=== PATIENT | male | born 1955 | race Caucasian/White ===

== ENCOUNTER 2017-03-19 17:09 | Inpatient (IN) | payer OTHER ==
[2017-03-19] MEDS ORDERED: ONDANSETRON 4 MG/2 ML VIAL IVP PRN (17:33)
[2017-03-19] MEDS ORDERED: PROMETHAZINE HCL 25 MG/ML INJ IVP PRN (17:33)
[2017-03-19] MEDS ORDERED: ZOLPIDEM TARTRATE 5 MG TAB PO PRN (17:33)
[2017-03-19] MEDS ORDERED: HYDROmorphONE/DILAUDID 6 MG/30 ML PCA IV PRN (17:34)
[2017-03-19] MEDS ORDERED: NALOXONE HCL 0.4 MG/ML INJ IVP PRN (17:34)
[2017-03-19] MEDS ORDERED: TAMSULOSIN HCL 0.4 MG CAP PO SCH (17:45)
[2017-03-19 18:43] LABS: HEMATOCRIT 35.3 % (40.0-51.0); HEMOGLOBIN 11.9 g/dL (13.7-17.5); MEAN CELL HEMOGLOBIN 30.9 pg (27.9-34.1); MEAN CELL HEMOGLOBIN CONCENTR. 33.7 g/dL (32.4-36.7); MEAN CELL VOLUME 91.7 fL (81.5-99.8); RED BLOOD CELL COUNT 3.85 10^6/uL (4.40-6.38); RED CELL DISTRIBUTION WIDTH 12.7 % (11.5-15.2)
[2017-03-19 18:56] LABS: ANION GAP 12 mEq/L (8-16); CALCIUM 9.6 mg/dL (8.5-10.4); CARBON DIOXIDE 23 mEq/l (22-31); CHLORIDE 105 mEq/L (97-110); CREATININE 1.6 mg/dL (0.7-1.3); GLOMERULAR FILTRATION RATE 44; GLUCOSE 105 mg/dL (70-100); POTASSIUM 4.3 mEq/L (3.5-5.2); SODIUM 140 mEq/L (134-144)
[2017-03-19] MEDS ORDERED: 1/2 NS 1,000 ML IV SCH (19:30)
[2017-03-19] MEDS ORDERED: D50W 25 GM/50 ML SYR IVP PRN (19:57)
[2017-03-19] MEDS ORDERED: INSULIN PUMP, PATIENT OWN 1 EA MISC SCH (20:00)
[2017-03-19] MEDS ORDERED: NON-FORMULARY NEW DRUG (Insulin Pump, Patient Own 1 EA) MISC SCH (20:00)
[2017-03-19] MEDS: FLUoxetine 10 MG CAP PO SCH (20:02)
--- NOTE | 2017-03-19 20:51 | GCON ---
[f rep st] CONSULTATION DATE OF CONSULTATION: 03/19/2017 REFERRING PHYSICIAN: Phillip Wood MD REASON FOR CONSULTATION: Medical management. HISTORY OF PRESENT ILLNESS: This is a 61-year-old male with a history of type 1 diabetes, coronary artery disease and previous strokes among other chronic medical problems. He does have a history of nephrolithiasis. He has been having pain for about a week and went to the [facility] Emergency Department. At that time he was diagnosed with a large right ureteral stone. He is being admitted for definitive procedure tomorrow by Dr. Wood. He says he has had some low-grade fevers, but no chills. He had some pain that started in his groin and now remains in his flank although he is comf ortable at the time. He has had some nausea and vomiting. No chest pain or shortness of breath. REVIEW OF SYSTEMS: A 10-point review of systems was obtained, and other than stated above is negati ve. PAST MEDICAL HISTORY: 1. Previous nephrolithiasis. 2. History of coronary artery disease with multiple stents, with the last stent done in November. 3. Type 1 diabetes on insulin pump. 4. History of CVA x3. 5. History of patent foramen ovale. 6. Obstructive sleep apnea on CPAP. 7. History of myasthenia gravis. 8. Hyperthyroidism. 9. Hypertension. 10. Hyperlipidemia. MEDICATIONS: Reviewed. SOCIAL HISTORY: No smoking or alcohol. FAMILY HISTORY: Dad with type 2 diabetes. No coronary artery disease. PAST SURGICAL HISTORY: 1. Hiatal hernia x 2. 2. Right shoulder surgery. 3. Carpal tunnel surgery. 4. Right inguinal surgery. 5. Kidney stones. PHYSICAL EXAM: VITAL SIGNS: Afebrile, blood pressure is 160/66, heart rate 86, oxygen saturation 9 1% on room air. GENERAL: The patient is well developed, in no apparent distress. HEENT: Nonicter ic sclerae. Extraocular movements intact. Moist mucous membranes. NECK: Supple. No thyromegaly. LUNGS: Good effort. Clear to auscultation bilaterally. CARDIOVASCULAR: Regular rate and rhythm . No murmurs, gallops. ABDOMEN: Positive bowel sounds. Soft, nontender, nondistended. No hepato splenomegaly. EXTREMITIES: No clubbing, cyanosis, or edema. SKIN: Without rash. Warm, intact. NEUROLOGIC: Alert and oriented x3. Moving all 4 extremities equally. PSYCHIATRIC: Normal affect. DIAGNOSTIC DATA: Labs: White count 8, hemoglobin 12. Chemistry does show creatinine 1.6 with a bas kristi of 0.9. ASSESSMENT: This is a 61-year-old male presenting with obstructing right kidney stone. 1. Right kidney stone. The patient will be undergoing a procedure tomorrow. I assume that his wor kup for infection was negative at [facility] a few days ago. We will check a urinalysis while kirti fry is here and make sure there is no infection. 2. History of type 1 diabetes with some element of insulin resistance. The patient is comfortable managing his insulin pump. We will continue to let him do that while in the hospital. I have held h is metformin because his creatinine is a little bit elevated. 3. History of coronary artery disease. This is stable. Since his last stent was over a year ago, we will hold his Plavix and hold aspirin for a day or 2 and around the procedure. 4. Acute renal failure. Probably due to obstructing stone. We will continue to monitor after his stone is removed. 5. History of obstructive sleep apnea. We will continue CPAP at night. 6. Hypertension. We will continue metoprolol. Will hold losartan due to his renal failure. 7. Deep venous thrombosis prophylaxis will start after surgery. Thank you for this consultation. We will follow along with you. /[id number]/MODL
[2017-03-19] MEDS ORDERED: FLUoxetine 20 MG CAP PO SCH (21:00)
[2017-03-19 22:45] LABS: HEMOGLOBIN A1C 6.8 % (4.0-6.0)
[2017-03-20 04:41] LABS: COLOR PALE YELLOW; LEUKOCYTE ESTERASE,URINE TRACE (NEGATIVE); NITRITE,URINE NEGATIVE (NEGATIVE)
[2017-03-20 04:46] LABS: BACTERIA TRACE /hpf (NONE SEEN); MUCUS TRACE /lpf (NONE-1+); RBC,URINE 25-50 /hpf (0-3)
[2017-03-20 05:21] LABS: % IMMATURE GRANULYOCYTES 0.4 % (0.0-1.1); ABSOLUTE IMMATURE GRANULOCYTES 0.03 10^3/uL (0.00-0.10); ADD DIFF? NO; ADD MORPH? NO; ADD SCAN? NO; ATYPICAL LYMPHOCYTE FLAG 10 (0-99); FRAGMENT RBC FLAG 0 (0-99); HEMATOCRIT 33.8 % (40.0-51.0); HEMOGLOBIN 11.1 g/dL (13.7-17.5); LEFT SHIFT FLG 0 (0-99); LIPEMIA HEMOLYSIS FLAG 80 (0-99); MEAN CELL HEMOGLOBIN 30.6 pg (27.9-34.1); MEAN CELL HEMOGLOBIN CONCENTR. 32.8 g/dL (32.4-36.7); MEAN CELL VOLUME 93.1 fL (81.5-99.8); MEAN PLATELET VOLUME 9.9 fL (8.7-11.7); PLATELET CLUMPS FLAG 0 (0-99); PLATELET COUNT 161 10^3/uL (150-400); RED BLOOD CELL COUNT 3.63 10^6/uL (4.40-6.38); RED CELL DISTRIBUTION WIDTH 12.9 % (11.5-15.2)
[2017-03-20 05:34] LABS: ANION GAP 11 mEq/L (8-16); CARBON DIOXIDE 25 mEq/l (22-31); CHLORIDE 104 mEq/L (97-110); CREATININE 1.7 mg/dL (0.7-1.3); GLOMERULAR FILTRATION RATE 41; GLUCOSE 79 mg/dL (70-100); POTASSIUM 4.4 mEq/L (3.5-5.2); SODIUM 140 mEq/L (134-144)
[2017-03-20] MEDS ORDERED: D10W 250 ML PRN HYPOGLYCEMIA IV (07:00)
[2017-03-20] MEDS ORDERED: levOFLOXACIN 500 MG/DEXTROSE 100 ML IV ONE (08:00)
[2017-03-20] MEDS ORDERED: IOPAMIDOL (ISOVUE-M 300) 15 ML VIAL ONE ×2 (08:32→09:51)
[2017-03-20] MEDS ORDERED: LIDOCAINE 2% JELLY 20 ML (UROJECT) ONE (08:32)
[2017-03-20] MEDS ORDERED: LR 1,000 ML IV ONE (08:39)
[2017-03-20] MEDS ORDERED: MIDAZOLAM 2 MG/2 ML VIAL IVP ONE (08:46)
--- NOTE | 2017-03-20 08:48 | PDANEPAE ---
ANE History of Present Illness 61-yo M for Ureteroscopy ANE Past Medical History - Cardiovascular History Hx Hypertension: Yes Hx Arrhythmias: No Hx Chest Pain: No Hx Coronary Artery / Peripheral Vascular Disease: Yes Hx CHF / Valvular Disease: No Hx Palpitations: No Cardiovascular History Comment: HTN. CAD. IA WITH STENT PLACEMENT X1 - Pulmonary History Hx COPD: No Hx Asthma/Reactive Airway Disease: No Hx Recent Upper Respiratory Infection: No Hx Oxygen in Use at Home: No Hx Sleep Apnea: Yes Sleep Apnea Screening Result - Last Documented: Positive Pulmonary History Comment: YOANDY POSITIVE - Neurologic History Hx Cerebrovascular Accident: Yes Hx Seizures: Yes Hx Dementia: No Neurologic History Comment: CVA IN 2005 X3. SEIZURES FOR 6 MONTHS FOLLOWING CVA - Endocrine History Hx Diabetes: Yes Endocrine History Comment: DM - Renal History Hx Renal Disorders: Yes Renal History Comment: RIGHT URETEROSCOPY WITH RHONDA 12/06/14 - Liver History Hx Hepatic Disorders: No - Neurological & Psychiatric Hx Hx Neurological and Psychiatric Disorders: No - Cancer History Hx Cancer: No - Congenital Disorder History Hx Congenital Disorders: No - GI History Hx Gastrointestinal Disorders: No - Other Health History Other Health History: NONE - Chronic Pain History Chronic Pain: No - Surgical History Prior Surgeries: RIGHT URETEROSCOPY WITH DR ELLIS 12/06/14 CARYL Review of Systems - Exercise capacity METS (RN): 3 METS ANE Patient History - Allergies Allergies/Adverse Reactions: caffeine Allergy (Verified 12/05/14 19:19) Sulfa (Sulfonamide Antibiotics) Allergy (Verified 12/05/14 11:52) - Home Medications Home Medications: Multivitamins [Multivitamin (*)] 1 each PO DAILY 12/05/14 [Last Taken 03/19/17] Aspirin [Aspirin 325 mg (*)] 325 mg PO DAILY 07/03/15 [Last Taken 03/18/17] Metoprolol Succinate Xr [Toprol Xl 25 mg (*)] 25 mg PO DAILY 07/03/15 [Last Taken 03/19/17] Simvastatin [Zocor] 20 mg PO DAILY 07/03/15 [Last Taken 03/19/17] Insulin Pump, Patient Own 1 ea MISC AD 05/15/16 [Last Taken 03/19/17] metFORMIN HCL [Glucophage 500 mg (*)] 1,000 mg PO BIDMEAL 05/15/16 [Last Taken 03/19/17 1 TAB] ARIPiprazole [Abilify 5 mg (*)] 5 mg PO DAILY 03/19/17 [Last Taken 03/19/17] Cholecalciferol Vit D3 [Vitamin D3 (*)] 2,000 units PO DAILY 03/19/17 [Last Taken 03/19/17] FLUoxetine [Prozac 10 MG (*)] 10 mg PO HS MDD 30MG 03/19/17 [Last Taken 03/18/17 ] FLUoxetine [Prozac 20 MG (*)] 20 mg PO HS MDD 30MG 03/19/17 [Last Taken 03/19/17 ] Losartan Potassium 100 mg PO DAILY 03/19/17 [Last Taken 03/19/17] [place]-3 Fatty Acids [Fish Oil 1000 mg (*)] 1,000 mg PO TID 03/19/17 [Last Taken Unknown] Tamsulosin HCl [Flomax 0.4 MG (*)] 0.4 mg PO DAILY 03/19/17 [Last Taken 03/19/17 ] - NPO status NPO Since - Liquids (Date): 03/20/17 NPO Since - Liquids (Time): 00:00 NPO Since - Solids (Date): 03/20/17 NPO Since - Solids (Time): 00:00 - Smoking Hx Smoking Status: Never smoked - Family Anes Hx Family Hx Anesthesia Complications: NONE ANE Labs/Vital Signs - Labs Result Diagrams: 03/20/17 04:30 03/20/17 04:30 - Vital Signs Blood Pressure: 137/65 Heart Rate: 84 Respiratory Rate: 16 O2 Sat (%): 93 Height: 172.72 cm Weight: 116.2 kg ANE Physical Exam - Airway Neck exam: FROM Mallampati Score: Class 2 Mouth exam: normal dental/mouth exam - Pulmonary Pulmonary: clear to auscultation - Cardiovascular Cardiovascular: regular rate and rhythym - ASA Status ASA Status: III ANE Anesthesia Plan Anesthesia Plan: GA w LMA
[2017-03-20] MEDS ORDERED: MIDAZOLAM 2 MG/2 ML VIAL ONE (08:54)
[2017-03-20] MEDS ORDERED: fentaNYL 100 MCG/2 ML INJ ONE ×3 (08:55→11:11)
[2017-03-20] MEDS ORDERED: PROPOFOL 200 MG/20 ML VIAL ONE (08:55)
[2017-03-20] MEDS ORDERED: HYDROmorphONE/DILAUDID 1 MG/ML SYR IVP PRN ×2 (09:04→11:45)
[2017-03-20] MEDS ORDERED: ONDANSETRON 4 MG/2 ML VIAL IVP PRN (09:04)
[2017-03-20] MEDS ORDERED: ACETAMINOPHEN 500 MG TAB PO PRN (09:04)
[2017-03-20] MEDS ORDERED: NALOXONE HCL 0.4 MG/ML INJ IVP PRN (09:04)
[2017-03-20] MEDS ORDERED: METOCLOPRAMIDE 10 MG/2 ML VIAL ONE (09:23)
[2017-03-20] MEDS ORDERED: ONDANSETRON 4 MG/2 ML VIAL ONE (09:24)
--- NOTE | 2017-03-20 10:50 | POSTANESTH ---
Post Anesthetic Evaluation Cardiovascular Status: Normal, Stable Respiratory Status: Normal, Stable Level of Consciousness/Mental Status: Can Participate in Eval, Alert and Oriented Pain Control: Adequate, Prn Tx Ordered Nausea/Vomiting Control: Adequate, Prn Tx Ordered
[2017-03-20] MEDS: fentaNYL 100 MCG/2 ML INJ IVP PRN ×2 (11:18→11:40)
--- NOTE | 2017-03-20 11:41 | POSTOPPROG ---
Post Op Note Date of Operation: 03/20/17 (H&P # [id number]) Surgeon: Phillip Wood (Op # [id number]) Anesthesia: LMA Pre-op Diagnosis: Right ureteral calculus Post-op Diagnosis: Multiple right ureteral calculi Procedure: Ureteroscopy w/ laser lithotripsy, stent placement Findings: See op note Inf/Abcess present in the surg proc area at time of surgery?: No EBL: Minimal Complications: Small distal ureteral perforation Drains: Other (4.7 Fr. multilength right ureteral stent)
[2017-03-20] MEDS ORDERED: HYDROCODONE/APAP 5/325 TAB PO PRN (11:45)
[2017-03-20] MEDS: PHENAZOPYRIDINE HCL 200 MG TAB PO SCH ×3 (13:12→20:58)
[2017-03-20] MEDS: TAMSULOSIN HCL 0.4 MG CAP PO SCH (13:13)
[2017-03-20] MEDS: ARIPiprazole 5 MG TAB PO SCH (13:14)
[2017-03-20] MEDS: ATORVASTATIN CALCIUM 10 MG TAB PO SCH (13:14)
[2017-03-20] MEDS: METOPROLOL SUCCINATE XR 25 MG TAB PO SCH (13:15)
--- NOTE | 2017-03-20 13:32 | GHP ---
[f rep st] HISTORY AND PHYSICAL DATE OF ADMISSION: 03/19/2017 CHIEF COMPLAINT: Symptomatic right ureteral calculus. HISTORY OF PRESENT ILLNESS: This is a 61-year-old gentleman, well known to my practice with a longs tanding history of recurrent nephroureterolithiasis. He started experiencing significant right-side d flank and abdominal pain earlier this week, for which he has been to the emergency room at [facility] twice. CT scan at that time revealed a large right midureteral calculus with moder ate proximal hydronephrosis and hydroureter. Multiple other renal calculi were also seen. The martina ent presented to my office on 03/19 and was noted to have intermittently severe symptoms. Because o f the size of the calculus and concern that he could be developing an infection, the patient was adm itted to the hospital for further management including surgical treatment of the ureteral calculi. The patient did have a low-grade temperature of 100 degrees the day prior to presentation to my offi ce. He denies any dysuria, gross hematuria, or changes in his voiding pattern. PAST MEDICAL HISTORY: Notable for recurrent nephroureterolithiasis, myasthenia gravis, high blood p ressure, high cholesterol, heart disease, gastroesophageal reflux disease, diabetes mellitus, bipola r disorder, history of a cerebrovascular accident x3, depression, patent foramina ovale, seizure dis order, sleep apnea. PAST SURGICAL HISTORY: Includes ureteroscopy on multiple occasions (most recently in November 2014), e xtracorporeal shockwave lithotripsy in July 2006, multiple cardiac stents placed (most recently November 2015), hiatal hernia repair, right inguinal hernia repair in November 2007. ADMISSION MEDICATIONS: Include aspirin 325 mg daily, Plavix, Prevacid, simvastatin, metoprolol, [place], insulin pump, fluoxetine. MEDICAL ALLERGIES: Sulfa causes anaphylaxis, caffeine causes severe vomiting and diarrhea. FAMILY HISTORY: Noncontributory. SOCIAL HISTORY: The patient is and lives in the [place] area. He has 2 children. He de nies use of tobacco products and consumes an occasional beer. PHYSICAL EXAMINATION: GENERAL: Obese white male, lying supine in bed, in no acute distress present ly. He appears older than his stated age. HEENT: Normocephalic, atraumatic. VITAL SIGNS: Stable , temperature 37.9 Celsius at 6:15 p.m. on admission 03/19. He has been essentially afebrile since t hen. Height 172 cm, weight 116 kg, BMI 39. ABDOMEN: Obese with large umbilical hernia. Mild tend erness is noted on the right side without peritoneal signs. HEART: Regular rate. CHEST: Unlabore d respiratory pattern. GENITALIA: Normal phallus and scrotal structures. NEUROLOGIC: He is alert and oriented and answers all questions appropriately with normal mood and affect. ADMISSION LABORATORY: Notable for white blood cell count 8000, chemistry panel notable for creatini ne 1.6. Urinalysis in the office was notable for microhematuria but negative for white blood cells or bacteria. RADIOGRAPHIC STUDIES: [facility] noncontrast abdominopelvic CT scan earlier this week: Notable for [id number] right hydronephrosis and hydroureter down to a large calculus 16 mm long in th e midportion of the ureter. Multiple bilateral nonobstructing renal calculi also seen. IMPRESSION: Symptomatic large right ureteral calculus. PLAN: The patient will undergo intraoperative management for his ureteral calculus on 03/20/2017. /[id number]/MODL
[2017-03-20] MEDS ORDERED: NS 1,000 ML IV SCH (15:30)
--- NOTE | 2017-03-20 15:32 | HOSPPROG ---
Hospitalist Progress Note Assessment/Plan: # nephrolithiasis s/p stone extraction, stent placement by Dr Wood - small distal ureteral perforation # MELVI - SCr still elevated; unclear if d/t stone or pre-renal - bolus 1L, check ULytes, recheck # DM1 - on insulin pump, A1c 6.8, glucs ok # CAD s/p stents, last 11/2015 - temporarily holding asa/plavix, restart soon - cont statin/metop # CVA - statin/plavix/asa # htn - metop Subjective: s/p lithotripsy; denies pain Objective: Vital Signs Temp Pulse Resp BP Pulse Ox 36.6 C 88 16 130/65 H 85 L 03/20/17 14:14 03/20/17 14:14 03/20/17 14:14 03/20/17 14:14 03/20/17 14:14 Laboratory Results 03/20/17 04:30 03/20/17 04:30 03/19/17 03/20/17 03/21/17 05:59 05:59 05:59 Intake Total 1586 Output Total 700 850 Balance -700 736 chart reviewed; op note reviewed - Physical Exam Constitutional: no apparent distress, appears nourished Cardiovascular: regular rate and rhythym, no murmur, rub, or gallop Respiratory: no respiratory distress, no rales or rhonchi, clear to auscultation Gastrointestinal: normoactive bowel sounds, soft, non-tender abdomen, no palpable masses, other (umbilical hernia) ICD10 Worksheet Patient Problems: Problems Problem Status Onset Obstructive uropathy Acute CAD (coronary artery disease) Acute History of coronary artery disease Acute Chest pain Acute
--- NOTE | 2017-03-20 20:43 | GOP ---
[f rep st] OPERATIVE REPORT DATE OF OPERATION: 03/20/2017 SURGEON: Phillip Wood MD ANESTHESIA: Laryngeal mask. PREOPERATIVE DIAGNOSIS: Symptomatic large right ureteral calculus. POSTOPERATIVE DIAGNOSIS: Symptomatic multiple right ureteral calculi. PROCEDURE PERFORMED: 1. Cystourethroscopy, right retrograde pyelography. 2. Right ureteroscopy with holmium laser calculus lithotripsy. 3. Right ureteral stent placement (4.7-[place] multilink). FINDINGS: Multiple right ureteral calculi, addressed as noted below. SPECIMENS: None. ESTIMATED BLOOD LOSS: Minimal. INDICATIONS: This gentleman was admitted yesterday from the clinic due to symptoms related to a large ureteral calculus seen on CT scan. The patient presents for operative management at this time. The indications for the procedures, as well as potential risks and complications, were discussed with the patient preoperatively. He appeared to understand, his questions were answered, and he wished to proceed. Written informed surgical consent was thereafter obtained. DESCRIPTION OF PROCEDURE: Once the patient was brought to the operating room, he was administered laryngeal mask anesthesia. He was carefully placed in the dorsal lithotomy position on the cystoscopic table. The genital area was sterilely prepped with Betadine scrub and paint then draped in usual sterile fashion. Cystoscopy was performed with a 30-degree lens through a 22-[place] sheath. Anterior urethra revealed no abnormalities. Posterior urethra revealed mild lateral lobe BPH. The bladder was moderately trabeculated without any areas of abnormal erythema, tumors, nor foreign bodies. Ureteral orifices were normal in regards to shape and position. Spot fluoroscopy was used to try and identify the location of the calculus prior to injection of contrast, but the calculus could not be easily visualized. I then injected contrast into the right ureter through a 5-[place] open-ended ureteral catheter to perform retrograde pyelography. This revealed no passage of contrast proximal to the distal ureter at about the level of the pelvic inlet. I then was able to pass a 0.035-inch angle-tipped hydrophilic guidewire up the right ureter, with the aid of the 5-[place] open-ended ureteral catheter, and advanced it proximal to the obstruction and into the renal collecting system as noted fluoroscopically. Immediately upon doing so, there was a significant amount of brownish urine that exited the ureteral orifice that was likely due to significant urinary stasis and obstruction from the large ureteral calculus. I then dilated the ureter distal to the calculus with a 4 cm balloon by maintaining a pressure of 16 atmospheres for about 4 minutes. The balloon dilator and cystoscope were then removed while keeping the guidewire in place. Semi-rigid ureteroscopy was performed alongside the guidewire. The ureteral mucosa appeared to be fairly friable in general. I reached the portion of the ureter that was at the level of the pelvic inlet and there was significant edema and inflammation at this location. I carefully advanced the ureteroscope further proximally, with the aid of an additional guidewire through the ureteroscope. Upon doing this, a small perforation of the ureter occurred near the pelvic inlet in the posteromedial position. I was able to re- advance the ureteroscope through the true lumen without difficulty thereafter, and without inducing further injury to the ureter. Upon passing through this inflamed and edematous portion of the ureter, I was able identify a very large calculus in the ureter along the mid portion. A 365-micron holmium laser fiber was used to fragment this calculus into as small pieces as possible. Upon doing this, I then identified several other smaller calculi that were just proximal to the large dominant calculus. These smaller calculi measured roughly 2-3 mm in size each. I used the holmium laser fiber to fragment all the calculi that were visualized into as small fragments as possible. I did not utilize a stone basket in order to minimize risk of further injury to the ureter. Once the calculi had been successfully fragmented, the ureteroscope was removed and the cystoscope was back-loaded over the guidewire. The 5- [place] open-ended ureteral catheter was then used to perform retrograde pyelography on the right side. This revealed [id number] hydronephrosis and some mild hydroureter. There was no obvious extravasation seen from the ureter at this point. It should also be noted that as I was backing out the ureteroscope following laser lithotripsy, I could not definitively see the location of the small perforation. Once retrograde pyelography was completed, a 4.7-[place] multilength hydrophilic ureteral stent was advanced over the guidewire until it was properly positioned as seen fluoroscopically in the kidney and cystoscopically in the bladder. The urine return at this point was light pink. The instruments were removed and 20 cc of 2% lidocaine injected transurethrally for postoperative analgesic purposes. The patient was then awakened, transferred to his bed, then taken to the recovery room. He tolerated the procedure well overall. COMPLICATIONS: Small ureteral perforation along the distal aspect in the posteromedial portion of the ureter. DISPOSITION: He was transferred to the recovery room in stable condition. He will be discharged once he has been deemed to be doing well, either this evening or tomorrow. /[id number]/MODL MTDD
[2017-03-20] MEDS: FLUoxetine 10 MG CAP PO SCH (20:57)
[2017-03-21 04:21] VITALS: TEMP 97.9; O2SAT 96
[2017-03-21 06:16] LABS: ANION GAP 9 mEq/L (8-16); CALCIUM 8.6 mg/dL (8.5-10.4); CARBON DIOXIDE 24 mEq/l (22-31); CHLORIDE 105 mEq/L (97-110); CREATININE 1.1 mg/dL (0.7-1.3); GLOMERULAR FILTRATION RATE > 60; GLUCOSE 190 mg/dL (70-100); POTASSIUM 4.7 mEq/L (3.5-5.2); SODIUM 138 mEq/L (134-144)
[2017-03-21] MEDS: TAMSULOSIN HCL 0.4 MG CAP PO SCH (08:16)
[2017-03-21] MEDS: ATORVASTATIN CALCIUM 10 MG TAB PO SCH (08:16)
[2017-03-21] MEDS: PHENAZOPYRIDINE HCL 200 MG TAB PO SCH (08:16)
[2017-03-21] MEDS: METOPROLOL SUCCINATE XR 25 MG TAB PO SCH (08:17)
[2017-03-21] MEDS: ARIPiprazole 5 MG TAB PO SCH (08:17)
[2017-03-21 08:51] VITALS: BP 158/68; PULSE 76; RESP 22
--- NOTE | 2017-03-21 19:00 | GDS ---
[f rep st] DISCHARGE SUMMARY ALL DIAGNOSES: 1. Symptomatic nephrolithiasis status post stone extraction and stent placement by Dr. Wood, comp licated by small distal ureteral perforation. 2. Acute kidney injury. 3. Diabetes mellitus type 2. 4. Coronary artery disease, status post stents last in November of 2015. 5. History of a cerebrovascular accident. 6. Hypertension. HOSPITAL COURSE: A 61-year-old man with vascular disease presents with symptomatic renal stones. H e underwent stone extraction, as well as stent placement by Dr. Wood. There was a small ureteral perforation, which has been asymptomatic for the patient. He presented with acute kidney injury, thi s has resolved with removal of the stones, as well as IV hydration. He has coronary artery disease. His aspirin and Plavix were held for 2 days. These will be restarted on the day of discharge. I have recommended that he speak with Dr. Vuong regarding his aspirin doses. He is on aspirin 325 mg . He has not had any chest pain or anything else concerning. He has a history of a CVA, is on appr opriate medications. For his diabetes, he is on an insulin pump and his glucoses have been well con trolled. A1c is 6.8. I discussed this with Dr. Wood. He is in agreement. He should follow up with Dr. Wood in 3 week s for stent removal. BILLING: I spent more than 30 minutes on the day of discharge coordinating care. /[id number]/MODL
== END 2017-03-21 10:15 | disposition home or self-care (01) | DRG 669 ==
LOC: INTOOBSV 17:09 → F3E 17:09 → OBSVTOIN 03-20 16:12
PROVIDERS: ADMIT Specialist; ATTEND Specialist
PROC: 0T768DZ Dilation of Right Ureter with Intraluminal Device, Via Natural or Artificial Opening Endoscopic (ICD-10-PCS; principal; 2017-03-20 09:00)
PROC: 0TC68ZZ Extirpation of Matter from Right Ureter, Via Natural or Artificial Opening Endoscopic (ICD-10-PCS; principal; 2017-03-20 09:00)
DX: N20.1 Calculus of ureter (principal); N99.71 Accidental puncture and laceration of a genitourinary system organ or structure during a genitourinary system procedure; N17.9 Acute kidney failure, unspecified; E10.9 Type 1 diabetes mellitus without complications; I10 Essential (primary) hypertension; I25.10 Atherosclerotic heart disease of native coronary artery without angina pectoris; G47.33 Obstructive sleep apnea (adult) (pediatric); Z95.5 Presence of coronary angioplasty implant and graft; Z86.73 Personal history of transient ischemic attack (TIA), and cerebral infarction without residual deficits; Z96.41 Presence of insulin pump (external) (internal); Z79.4 Long term (current) use of insulin
CPT/HCPCS: C1726; C1758; C1769; C2625; G0378; J1170; J1956; J2250; J2405; J2704; J2765; J3010; Q9967

== ENCOUNTER → 2017-04-05 | Outpatient (CLI) | payer OTHER | LOC: FIMAGING 15:57 | PROVIDERS: ATTEND Internal Medicine | DX: M23.232 Derangement of other medial meniscus due to old tear or injury, left knee (principal); M22.42 Chondromalacia patellae, left knee; M76.32 Iliotibial band syndrome, left leg; M25.462 Effusion, left knee ==

== ENCOUNTER → 2017-06-18 | Outpatient (CLI) | payer OTHER ==
[~2017-06-18] MED LIST: REGADENOSON 0.4 MG/5 ML SYR IVP ONE
--- NOTE | 2017-06-18 15:05 | PDCARST ---
CAR Stress Test Results Type of Stress Test: Lexiscan stress test Indication: preop/ CAD Description of Procedure: After informed consent was obtained, pt was established to ECG, blood pressure, HR and oximetry monitoring. STRESS EKG AND HEMODYNAMIC DATA. Resting heart rate: 82 BPM. Resting ECG: SR. Resting blood pressure: 136/60 mmHg. O2 saturation at rest: 92%. Peak heart rate: 82 BPM. Peak blood pressure: 158/60 mmHg. Arrhythmias: none. Symptoms: The patient experienced no typical symptoms of angina during stress or recovery. Stress/Infusion ECG: No change in rhythm with no significant ST/T wave changes. Stress/infusion O2 saturation: 98% Impression: Uneventful Lexiscan infusion Conclusion: Await nuclear images.
== END ==
LOC: FIMAGING 13:21
PROVIDERS: ATTEND Internal Medicine Cardiovascular Disease
DX: Z01.818 Encounter for other preprocedural examination (principal); I25.10 Atherosclerotic heart disease of native coronary artery without angina pectoris
CPT/HCPCS: 78452; 93017; A9500; J2785

== ENCOUNTER 2017-06-23 10:45 | Day surgery (SDC) | payer OTHER ==
[~2017-06-23 10:45] MED LIST changes: +NS 1,000 ML IV SCH; -REGADENOSON 0.4 MG/5 ML SYR IVP ONE
--- NOTE | 2017-06-23 12:36 | PDANEPAE ---
ANE History of Present Illness 62 year old with kidney stones ANE Past Medical History - Cardiovascular History Hx Hypertension: Yes Hx Arrhythmias: No Hx Chest Pain: No Hx Coronary Artery / Peripheral Vascular Disease: Yes Hx CHF / Valvular Disease: No Hx Palpitations: No Cardiovascular History Comment: HTN. CAD. [place] WITH STENT PLACEMENT X1 - Pulmonary History Hx COPD: No Hx Asthma/Reactive Airway Disease: No Hx Recent Upper Respiratory Infection: No Hx Oxygen in Use at Home: No Hx Sleep Apnea: Yes Sleep Apnea Screening Result - Last Documented: Positive Pulmonary History Comment: YOANDY POSITIVE - Neurologic History Hx Cerebrovascular Accident: Yes Hx Seizures: Yes Hx Dementia: No Neurologic History Comment: CVA IN 2005 X3. SEIZURES FOR 6 MONTHS FOLLOWING CVA - Endocrine History Hx Diabetes: Yes Endocrine History Comment: DM - Renal History Hx Renal Disorders: Yes Renal History Comment: RIGHT URETEROSCOPY WITH RHONDA 12/06/14 - Liver History Hx Hepatic Disorders: No - Neurological & Psychiatric Hx Hx Neurological and Psychiatric Disorders: No - Cancer History Hx Cancer: No - Congenital Disorder History Hx Congenital Disorders: No - GI History Hx Gastrointestinal Disorders: No Gastrointestinal History Comment: Landin's esophagus-stable - Other Health History Other Health History: NONE - Chronic Pain History Chronic Pain: No - Surgical History Prior Surgeries: RIGHT URETEROSCOPY WITH DR ELLIS 12/06/14 ANE Review of Systems Review of systems is: negative Review of Systems: - Exercise capacity METS (RN): 4 METS ANE Patient History - Allergies Allergies/Adverse Reactions: caffeine Allergy (Verified 06/22/17 12:33) Vomiting linaclotide [From Linzess] Allergy (Verified 06/22/17 12:33) Abdominal Cramping Sulfa (Sulfonamide Antibiotics) Allergy (Verified 06/22/17 12:33) Anaphylaxis - Home Medications Home Medications: Multivitamins [Multivitamin (*)] 1 each PO DAILY 12/05/14 [Last Taken 06/12/17 08:00] Aspirin [Aspirin 325 mg (*)] 325 mg PO DAILY 07/03/15 [Last Taken 06/12/17 08:00 ] Metoprolol Succinate Xr [Toprol Xl 25 mg (*)] 25 mg PO DAILY 07/03/15 [Last Taken 06/22/17] Simvastatin [Zocor] 20 mg PO DAILY 07/03/15 [Last Taken 06/22/17] Insulin Pump, Patient Own 1 ea MISC AD 05/15/16 [Last Taken 06/22/17] metFORMIN HCL [Glucophage 500 mg (*)] 1,000 mg PO BIDMEAL 05/15/16 [Last Taken 06/22/17] ARIPiprazole [Abilify 5 mg (*)] 5 mg PO DAILY 03/19/17 [Last Taken 06/22/17] FLUoxetine [Prozac 10 MG (*)] 10 mg PO HS MDD 30MG 03/19/17 [Last Taken 06/22/17 ] FLUoxetine [Prozac 20 MG (*)] 20 mg PO HS MDD 30MG 03/19/17 [Last Taken 06/22/17 ] Cholecalciferol Vit D3 [Vitamin D3 2000 units tab (OTC)] 4,000 units PO DAILY [Last Taken 06/12/17 08:00] Losartan Potassium [Cozaar 50 mg (*)] 100 mg PO DAILY 06/07/17 [Last Taken 06/22] Pantoprazole Sodium [Protonix 40mg (*)] 40 mg PO DAILY 06/07/17 [Last Taken ] Travoprost Z 0.004% [Travatan Z 0.004% (*)] 1 drops EACHEYE DAILY 06/07/17 [ Last Taken 06/22/17] buPROPion [Wellbutrin 75mg (*)] 150 mg PO DAILY 06/07/17 [Last Taken 06/22/17] - Anes Hx Anes Hx: no prior problems - Smoking Hx Smoking Status: Never smoked - Alcohol Use Alcohol Use: Occasionally - Family Anes Hx Family Hx Anesthesia Complications: NONE ANE Labs/Vital Signs - Vital Signs Height: 172.72 cm Weight: 115.666 kg ANE Physical Exam - Airway Neck exam: decreased ROM Mallampati Score: Class 3 Mouth exam: normal dental/mouth exam - Pulmonary Pulmonary: no respiratory distress - Cardiovascular Cardiovascular: regular rate and rhythym - ASA Status ASA Status: III ANE Anesthesia Plan Anesthesia Plan: general endotracheal anesthesia
[2017-06-23] MEDS ORDERED: fentaNYL 100 MCG/2 ML INJ ONE (13:17)
[2017-06-23] MEDS ORDERED: PROPOFOL 200 MG/20 ML VIAL ONE (13:17)
[2017-06-23 14:56] VITALS: PULSE 90; TEMP 98.2
[2017-06-23] MEDS ORDERED: ACETAMINOPHEN 325 MG TAB PO PRN (15:01)
[2017-06-23] MEDS ORDERED: ONDANSETRON 4 MG/2 ML VIAL IVP PRN (15:02)
[2017-06-23 16:19] VITALS: BP 135/73; RESP 18; O2SAT 90
== END 2017-06-23 16:19 | disposition home or self-care (01) ==
LOC: FIMAGING 10:45
PROVIDERS: ATTEND Specialist
PROC: 0T9030Z Drainage of Right Kidney with Drainage Device, Percutaneous Approach (ICD-10-PCS; principal; 2017-06-23 12:30)
DX: Z46.6 Encounter for fitting and adjustment of urinary device (principal); N20.0 Calculus of kidney; I25.10 Atherosclerotic heart disease of native coronary artery without angina pectoris; E11.9 Type 2 diabetes mellitus without complications; Z86.73 Personal history of transient ischemic attack (TIA), and cerebral infarction without residual deficits
CPT/HCPCS: 50432; C1729; C1769; J0696; J2704; J3010

== ENCOUNTER 2017-06-24 06:50 | Observation (INO) | payer OTHER ==
[~2017-06-24 06:50] MED LIST changes: +ACETAMINOPHEN 325 MG TAB ONE; +FLUMAZENIL 0.5 MG/5 ML MDV IVP ONE; +IOPAMIDOL (ISOVUE-300) 100 ML BTL ONE; +MIDAZOLAM 2 MG/2 ML VIAL IVP ONE; +NALOXONE HCL 0.4 MG/ML INJ IVP PRN; -NS 1,000 ML IV SCH; +ONDANSETRON 4 MG/2 ML VIAL IVP PRN; +PROMETHAZINE HCL 25 MG/ML INJ IVP PRN; +fentaNYL 100 MCG/2 ML INJ IVP PRN
[2017-06-24] MEDS ORDERED: LR 1,000 ML IV ONE (07:39)
[2017-06-24] MEDS ORDERED: IOPAMIDOL (ISOVUE-300) 100 ML BTL ONE (08:51)
[2017-06-24] MEDS ORDERED: MINERAL OIL 10 ML VIAL ONE (08:52)
[2017-06-24] MEDS ORDERED: MIDAZOLAM 2 MG/2 ML VIAL IVP ONE (10:43)
--- NOTE | 2017-06-24 10:43 | PDANEPAE ---
ANE History of Present Illness right renal calculi ANE Past Medical History - Cardiovascular History Hx Hypertension: Yes Hx Arrhythmias: No Hx Chest Pain: No Hx Coronary Artery / Peripheral Vascular Disease: Yes Hx CHF / Valvular Disease: No Hx Palpitations: No Cardiovascular History Comment: HTN. CAD. [place] WITH STENT PLACEMENT X1 - Pulmonary History Hx COPD: No Hx Asthma/Reactive Airway Disease: No Hx Recent Upper Respiratory Infection: No Hx Oxygen in Use at Home: No Hx Sleep Apnea: Yes Sleep Apnea Screening Result - Last Documented: Positive Pulmonary History Comment: YOANDY POSITIVE - Neurologic History Hx Cerebrovascular Accident: Yes Hx Seizures: Yes Hx Dementia: No Neurologic History Comment: CVA IN 2005 X3. SEIZURES FOR 6 MONTHS FOLLOWING CVA - Endocrine History Hx Diabetes: Yes Endocrine History Comment: DM - Renal History Hx Renal Disorders: Yes Renal History Comment: RIGHT URETEROSCOPY WITH RHONDA 12/06/14 - Liver History Hx Hepatic Disorders: No - Neurological & Psychiatric Hx Hx Neurological and Psychiatric Disorders: No - Cancer History Hx Cancer: No - Congenital Disorder History Hx Congenital Disorders: No - GI History Hx Gastrointestinal Disorders: No Gastrointestinal History Comment: Landin's esophagus-stable - Other Health History Other Health History: NONE - Chronic Pain History Chronic Pain: No - Surgical History Prior Surgeries: RIGHT URETEROSCOPY WITH DR ELLIS 12/06/14 CARYL Review of Systems Review of Systems: - Exercise capacity METS (RN): 4 METS ANE Patient History - Allergies Allergies/Adverse Reactions: caffeine Allergy (Verified 06/22/17 12:33) Vomiting linaclotide [From Linzess] Allergy (Verified 06/22/17 12:33) Abdominal Cramping Sulfa (Sulfonamide Antibiotics) Allergy (Verified 06/22/17 12:33) Anaphylaxis - Home Medications Home Medications: RX: Multivitamins [Multivitamin (*)] 1 each PO DAILY 12/05/14 [Last Taken 08:00] RX: Aspirin [Aspirin 325 mg (*)] 325 mg PO DAILY 07/03/15 [Last Taken 06/12/17 08:00] RX: Metoprolol Succinate Xr [Toprol Xl 25 mg (*)] 25 mg PO DAILY 07/03/15 [Last Taken 06/23/17 20:30] RX: Simvastatin [Zocor] 20 mg PO DAILY 07/03/15 [Last Taken 06/23/17] RX: Insulin Pump, Patient Own 1 [facility] AD 05/15/16 [Last Taken 06/22/17] RX: metFORMIN HCL [Glucophage 500 mg (*)] 1,000 mg PO BIDMEAL 05/15/16 [Last Taken 06/22/17 18:00] RX: ARIPiprazole [Abilify 5 mg (*)] 5 mg PO DAILY 03/19/17 [Last Taken 06/22/17] RX: FLUoxetine [Prozac 10 MG (*)] 10 mg PO HS MDD 30MG 03/19/17 [Last Taken ] RX: FLUoxetine [Prozac 20 MG (*)] 20 mg PO HS MDD 30MG 03/19/17 [Last Taken ] Cholecalciferol Vit D3 [Vitamin D3 2000 units tab (OTC)] 4,000 units PO DAILY [Last Taken 06/12/17 08:00] Losartan Potassium [Cozaar 50 mg (*)] 100 mg PO DAILY 06/07/17 [Last Taken 06/24 05:30] Pantoprazole Sodium [Protonix 40mg (*)] 40 mg PO DAILY 06/07/17 [Last Taken 05:30] Travoprost Z 0.004% [Travatan Z 0.004% (*)] 1 drops EACHEYE DAILY 06/07/17 [ Last Taken 06/23/17] buPROPion [Wellbutrin 75mg (*)] 150 mg PO DAILY 06/07/17 [Last Taken 06/24/17 05 :30] - NPO status NPO Since - Liquids (Date): 06/23/17 NPO Since - Liquids (Time): 21:00 NPO Since - Solids (Date): 06/23/17 NPO Since - Solids (Time): 18:00 - Smoking Hx Smoking Status: Never smoked - Alcohol Use Alcohol Use: Occasionally - Family Anes Hx Family Hx Anesthesia Complications: NONE ANE Labs/Vital Signs - Vital Signs Blood Pressure: 144/68 Heart Rate: 85 Respiratory Rate: 16 O2 Sat (%): 92 Height: 172.72 cm Weight: 115.666 kg ANE Physical Exam - Airway Neck exam: decreased ROM Mallampati Score: Class 3 Mouth exam: normal dental/mouth exam, small mouth opening - Pulmonary Pulmonary: no respiratory distress - Cardiovascular Cardiovascular: regular rate and rhythym - ASA Status ASA Status: III ANE Anesthesia Plan Anesthesia Plan: general endotracheal anesthesia
[2017-06-24] MEDS ORDERED: MIDAZOLAM 2 MG/2 ML VIAL ONE (10:47)
[2017-06-24] MEDS ORDERED: fentaNYL 100 MCG/2 ML INJ ONE (10:49)
[2017-06-24] MEDS ORDERED: ROCURONIUM 50 MG/5 ML VIAL ONE (10:49)
[2017-06-24] MEDS ORDERED: PROPOFOL 200 MG/20 ML VIAL ONE (10:49)
[2017-06-24] MEDS ORDERED: HYDROmorphONE/DILAUDID 2 MG/ML INJ ONE (10:49)
[2017-06-24] MEDS ORDERED: NALOXONE HCL 0.4 MG/ML INJ IVP PRN (12:11)
[2017-06-24] MEDS ORDERED: fentaNYL 100 MCG/2 ML INJ IVP PRN (12:11)
[2017-06-24] MEDS ORDERED: ONDANSETRON 4 MG/2 ML VIAL IVP PRN ×2 (12:11→13:29)
[2017-06-24] MEDS ORDERED: HYDROmorphONE/DILAUDID 1 MG/ML INJ IVP PRN ×2 (12:11→13:29)
[2017-06-24] MEDS ORDERED: PROMETHAZINE HCL 25 MG/ML INJ IVP PRN ×2 (12:11→13:29)
[2017-06-24] MEDS ORDERED: DEXAMETHASONE 4 MG/ML VIAL ONE (12:40)
[2017-06-24] MEDS ORDERED: ONDANSETRON 4 MG/2 ML VIAL ONE (12:40)
--- NOTE | 2017-06-24 12:49 | POSTANESTH ---
Post Anesthetic Evaluation Cardiovascular Status: Normal, Stable Respiratory Status: Normal, Stable Level of Consciousness/Mental Status: Can Participate in Eval Pain Control: Adequate, Prn Tx Ordered Nausea/Vomiting Control: Adequate, Prn Tx Ordered Complications Possibly Related to Anesthesia: None Noted
--- NOTE | 2017-06-24 12:51 | POSTOPPROG ---
Post Op Note Date of Operation: 06/24/17 Surgeon: Phillip Wood (# [id number]) Anesthesia: GET(General Endotracheal) Pre-op Diagnosis: > 2 cm volume right nephrolithiasis Post-op Diagnosis: > 2 cm volume right nephrolithiasis Procedure: Right PCNL w/ fluoro guidance > 1 hr. Findings: See op note Inf/Abcess present in the surg proc area at time of surgery?: No EBL: 50-100 (50 cc) Complications: None Drains: Other (12 Fr. right nephrostomy tube) Specimen(s): Right renal calculus fragments
[2017-06-24] MEDS ORDERED: OXYCODONE/APAP 5/325 TAB PO PRN (13:29)
[2017-06-24] MEDS ORDERED: NON-FORMULARY NEW DRUG (Insulin Pump, Patient Own 1 EA) MISC SCH (13:45)
[2017-06-24] MEDS ORDERED: D50W 25 GM/50 ML SYR IVP PRN (15:26)
[2017-06-24] MEDS ORDERED: PARAMETERS MISC PRN (15:26)
[2017-06-24] MEDS ORDERED: D50W 25 GM/50 ML VIAL IVP PRN (15:26)
[2017-06-24] MEDS: 1/2 NS 1,000 ML IV SCH (15:28)
[2017-06-24] MEDS ORDERED: D10W 250 ML BAG IV PRN (15:30)
--- NOTE | 2017-06-24 15:47 | GOP ---
[f rep st] OPERATIVE REPORT DATE OF OPERATION: 06/15/2017 SURGEON: Phillip Wood MD ANESTHESIA: General endotracheal. PREOPERATIVE DIAGNOSIS: Greater than 2 cm volume, right nephrolithiasis. POSTOPERATIVE DIAGNOSIS: Greater than 2 cm volume, right nephrolithiasis. PROCEDURE PERFORMED: Right-sided percutaneous nephrostolithotomy with ultrasonic Lithotripter and eagle nd forceps extraction, with fluoroscopic guidance greater than 1 hour. FINDINGS: Greater than 2 cm renal stone volume noted within a lower pole posterior calyx and extendi ng into the renal pelvis. SPECIMENS: Right renal calculus fragments. ESTIMATED BLOOD LOSS: Less than 50 cc. INDICATIONS: This gentleman has large volume bilateral nephrolithiasis. He presents at this time fo r right-sided percutaneous nephrostolithotomy as part of a staged process to treat his bilateral jayant l stone disease. He underwent right-sided nephrostomy tube placement in Interventional [facility]iology yes terday. The indications for the procedures as well as potential risks and complications, were discus sed with the patient preoperatively. He appeared to understand, his questions were answered, and he wished to proceed. Written informed surgical consent was thereafter obtained. DESCRIPTION OF PROCEDURE: The patient was brought to the operating room and administered general end otracheal anesthesia. He was carefully placed in the prone position on the operating table. The rig ht side of the back and existing nephrostomy tube were prepped and draped in the standard fashion. I t should be mentioned that, prior to placing the patient in the prone position, while he was still russell pine and intubated, Zafar catheter was placed to bag drainage without complication. The back was pre pped and draped in standard fashion. Dr. Mckenzie from Interventional Radiology then proceeded to plac e a balloon occlusion catheter at the ureteropelvic junction, followed by a 32-Amharic working nephros copic sheath. After doing so, I then performed rigid nephroscopy through the nephroscopic sheath. S ome dominant calculi were seen in the lower pole calyx and renal pelvis. This was the same calyx thr ough which the access was obtained. I used the ultrasonic Lithotripter to fragment these calculi, fo llowed by rigid grasping forceps to pull out the visible fragments. At this point, there were no oth er calculi seen within the lower pole calyx through which the nephroscopic sheath was contained, nor within the renal pelvis. It should also be mentioned that none of the calculi were visible on C-arm fluoroscopy which was used intermittently throughout the case for scope guidance. I decided to proceed with flexible nephroscopy. The flexible cystoscope was then brought onto the eld. I then carefully and systematically evaluated each of the calices within the upper pole, mid po le, and was able to retroflex the scope in order to see the anterior calices of the lower pole. No o ther significant calculi were seen. There were some Jori's plaques noted diffusely on some of the different calices throughout the kidney. At this point, I was confident that there were no remainin g sizable calculi within the right renal collecting system. The surgical procedure was terminated at this time. Dr. Mckenzie then proceeded to place a 12-Amharic nephrostomy tube in the renal pelvis. It was secured to the skin with a 2-0 silk suture, then dressed appropriately with gauze and ski slope dressing. e nephrostomy tube irrigated manually and the return was reddish at this point. The nephrostomy tube was connected to bag drainage. The patient was carefully turned over into the supine position on [facility]. He was extubated. He tolerated the procedure well overall and was transferred to the recovery room at this point. Zafar catheter was left in place. COMPLICATIONS: None. DISPOSITION: He was transferred to the recovery room in stable condition. [facility]. /[id number]/MODL
[2017-06-24] MEDS: metFORMIN HCL 500 MG TAB PO SCH (18:11)
[2017-06-24] MEDS: INSULIN REGULAR HUMAN 100 UNIT/ML SC SCH ×2 (18:11→22:29)
[2017-06-24 19:49] VITALS: RESP 16
[2017-06-24] MEDS ORDERED: METOPROLOL SUCCINATE XR 25 MG TAB PO SCH (21:00)
[2017-06-24] MEDS ORDERED: ARIPiprazole 5 MG TAB PO SCH (21:00)
[2017-06-24] MEDS ORDERED: FLUoxetine 20 MG CAP PO SCH (21:00)
[2017-06-24] MEDS ORDERED: FLUoxetine 10 MG CAP PO SCH (21:00)
[2017-06-25] MEDS: 1/2 NS 1,000 ML IV SCH (00:56)
[2017-06-25 05:23] LABS: HEMATOCRIT 35.2 % (40.0-51.0); HEMOGLOBIN 11.8 g/dL (13.7-17.5); MEAN CELL HEMOGLOBIN 30.6 pg (27.9-34.1); MEAN CELL HEMOGLOBIN CONCENTR. 33.5 g/dL (32.4-36.7); MEAN CELL VOLUME 91.2 fL (81.5-99.8); RED BLOOD CELL COUNT 3.86 10^6/uL (4.40-6.38); RED CELL DISTRIBUTION WIDTH 13.5 % (11.5-15.2)
[2017-06-25 05:34] LABS: ANION GAP 11 mEq/L (8-16); CALCIUM 8.8 mg/dL (8.5-10.4); CARBON DIOXIDE 26 mEq/l (22-31); CHLORIDE 100 mEq/L (97-110); CREATININE 0.9 mg/dL (0.7-1.3); GLOMERULAR FILTRATION RATE > 60; GLUCOSE 208 mg/dL (70-100); POTASSIUM 4.3 mEq/L (3.5-5.2); SODIUM 137 mEq/L (134-144)
[2017-06-25] MEDS ORDERED: buPROPion XL 150 MG TAB PO SCH (09:00)
[2017-06-25] MEDS ORDERED: NON-FORMULARY NEW DRUG (Simvastatin [Zocor] 20 MG) PO SCH (09:00)
[2017-06-25] MEDS ORDERED: FLUoxetine 10 MG CAP PO SCH (09:00)
[2017-06-25] MEDS ORDERED: FLUoxetine 20 MG CAP PO SCH (09:00)
[2017-06-25] MEDS ORDERED: ARIPiprazole 5 MG TAB PO SCH (09:00)
[2017-06-25] MEDS ORDERED: TRAVOPROST Z 0.004% 2.5 ML OPHT.BTL EACHEYE SCH (09:00)
[2017-06-25] MEDS ORDERED: LOSARTAN POTASSIUM 50 MG TAB PO SCH (09:00)
[2017-06-25] MEDS ORDERED: METOPROLOL SUCCINATE XR 25 MG TAB PO SCH (09:00)
[2017-06-25] MEDS ORDERED: ATORVASTATIN CALCIUM 10 MG TAB PO SCH (09:00)
[2017-06-25] MEDS ORDERED: buPROPion 75 MG TAB PO SCH (09:00)
--- NOTE | 2017-06-25 09:06 | GDS ---
[f rep st] DISCHARGE SUMMARY DATE OF SURGERY: 06/24/2017. PREOP AND POSTOP DIAGNOSIS: Right nephrolithiasis. HOSPITAL COURSE: The patient was admitted, and had a right-sided percutaneous nephrolithotomy done w ith laser. Underwent procedure without difficulty. He is being discharged home in good condition po st nephrostogram and nephro tube removal with IR. PHYSICAL EXAM: The patient was alert, oriented. Affect appropriate to situation. Minimal tendernes s on right CVA, lightly bloody urine in right neph tube bag. The patient did have pink urine in Fole y catheter bag. Integument normal skin tone. No rashes or lesions. /[id number]/MODL
[2017-06-25] MEDS: metFORMIN HCL 500 MG TAB PO SCH (09:12)
[2017-06-25] MEDS: INSULIN REGULAR HUMAN 100 UNIT/ML SC SCH (09:32)
[2017-06-25] MEDS ORDERED: IOPAMIDOL (ISOVUE-300) 100 ML BTL ONE (11:19)
[2017-06-25 11:49] VITALS: BP 129/58; PULSE 87; TEMP 97.8; O2SAT 91
--- NOTE | 2017-06-25 14:33 | ASDISCHSUM ---
Discharge Information Plan Status: Medically Cleared to Leave: Discharge Date:06/25/2017 12:23 PM CM D/C Disposition: ADT D/C Disposition:Home, Routine, Self-Care Projected Discharge Date:06/25/2017 12:23 PM Transportation at D/C: Discharge Delay Reason: Follow-Up Date:06/25/2017 12:23 PM Discharge Slot: Final Diagnosis: Placement Information Patient Contact Information Contact Name:ALEJANDRO Relationship: Address:[address] City:[place] Alternate Phone: State/Zip Code:[place] [address] Email: Financial Information Financial Class:Medicare Advantage Plans Primary Plan Desc:[facility] [facility] [facility] [employer]ANS Primary Plan Number:[id number] Secondary Plan Desc: Secondary Plan Number: Assessment Information Intervention Information Intervention Type:*MICHAEL-Signed Date of Service:06/24/2017 03:15 PM Patient Type:Observation Staff Member:Clara Scott Hours: Discipline: Severity: Comment:
== END 2017-06-25 12:23 | disposition home or self-care (01) ==
LOC: F1N 06:50
PROVIDERS: ADMIT Specialist; ATTEND Specialist
PROC: 0TL Urinary System, Occlusion (ICD-10-PCS; principal; 2017-06-24 09:30)
PROC: 0T9030Z Drainage of Right Kidney with Drainage Device, Percutaneous Approach (ICD-10-PCS; principal; 2017-06-24 09:30)
PROC: 0TC34ZZ Extirpation of Matter from Right Kidney Pelvis, Percutaneous Endoscopic Approach (ICD-10-PCS; principal; 2017-06-24 09:30)
PROC: BT111ZZ Fluoroscopy of Right Kidney using Low Osmolar Contrast (ICD-10-PCS; principal; 2017-06-24 09:30)
PROC: 0TC04ZZ Extirpation of Matter from Right Kidney, Percutaneous Endoscopic Approach (ICD-10-PCS; principal; 2017-06-24 09:30)
PROC: 0TP5X0Z Removal of Drainage Device from Kidney, External Approach (ICD-10-PCS; 2017-06-25)
DX: N20.0 Calculus of kidney (principal); I10 Essential (primary) hypertension; I25.10 Atherosclerotic heart disease of native coronary artery without angina pectoris; Z95.5 Presence of coronary angioplasty implant and graft; G47.33 Obstructive sleep apnea (adult) (pediatric); E11.9 Type 2 diabetes mellitus without complications; Z86.73 Personal history of transient ischemic attack (TIA), and cerebral infarction without residual deficits
CPT/HCPCS: 50081; 50389; 50395; 74425; 74485; 75984; C1725; C1729; C1769; C1894; G0378; J0696; J1100; J1170; J1644; J2250; J2405; J2550; J2704; J3010; Q9967; 82365-90

== ENCOUNTER → 2017-07-20 | Outpatient (CLI) | payer OTHER | LOC: CIMAGING 10:16 | PROVIDERS: ATTEND Specialist | DX: N20.0 Calculus of kidney (principal); K42.9 Umbilical hernia without obstruction or gangrene; K43.9 Ventral hernia without obstruction or gangrene | CPT/HCPCS: 74176-PO ==

== ENCOUNTER 2017-10-21 06:41 | Day surgery (SDC) | payer OTHER ==
[2017-10-21] MEDS ORDERED: levOFLOXACIN 500 MG/DEXTROSE 100 ML IV ONE (06:55)
[2017-10-21] MEDS ORDERED: LR 1,000 ML IV ONE (06:56)
--- NOTE | 2017-10-21 08:09 | PDANEPAE ---
ANE History of Present Illness Patient presents for L ureteroscopy, stone extraction ANE Past Medical History - Cardiovascular History Hx Hypertension: Yes Hx Arrhythmias: No Hx Chest Pain: No Hx Coronary Artery / Peripheral Vascular Disease: No Hx CHF / Valvular Disease: No Hx Palpitations: No Cardiovascular History Comment: HTN. [place] WITH STENT PLACEMENT X1 - Pulmonary History Hx COPD: No Hx Asthma/Reactive Airway Disease: No Hx Recent Upper Respiratory Infection: No Hx Oxygen in Use at Home: No Hx Sleep Apnea: Yes Sleep Apnea Screening Result - Last Documented: Positive Pulmonary History Comment: YOANDY uses CPAP - Neurologic History Hx Cerebrovascular Accident: Yes Hx Seizures: Yes Hx Dementia: No Neurologic History Comment: CVA IN 2005 X3. SEIZURES 2006 -FOLLOWING CVA - Endocrine History Hx Diabetes: Yes Endocrine History Comment: IDDM type 1 on insulin pump - Renal History Hx Renal Disorders: Yes Renal History Comment: multiple kidney stones - Liver History Hx Hepatic Disorders: No - Neurological & Psychiatric Hx Hx Neurological and Psychiatric Disorders: Yes Neurological / Psychiatric History Comment: depression, Bi-polar - Cancer History Hx Cancer: No - Congenital Disorder History Hx Congenital Disorders: No - GI History Hx Gastrointestinal Disorders: Yes Gastrointestinal History Comment: Landin's esophagus-stable - Other Health History Other Health History: NONE - Chronic Pain History Chronic Pain: No - Surgical History Prior Surgeries: Multiple Right and left ureteroscopies ANE Review of Systems Review of Systems: - Exercise capacity METS (RN): 4 METS ANE Patient History - Allergies Allergies/Adverse Reactions: caffeine Allergy (Verified 10/21/17 06:56) Vomiting linaclotide [From Linzess] Allergy (Verified 10/21/17 06:56) Abdominal Cramping Sulfa (Sulfonamide Antibiotics) Allergy (Verified 10/21/17 06:56) Anaphylaxis - Home Medications Home medications: home medication list seen and reviewed Home Medications: Multivitamins [Multivitamin (*)] 1 each PO DAILY 12/05/14 [Last Taken 10/14/17] Aspirin [Aspirin 325 mg (*)] 325 mg PO DAILY 07/03/15 [Last Taken 10/11/17] Metoprolol Succinate Xr [Toprol Xl 25 mg (*)] 25 mg PO DAILY 07/03/15 [Last Taken 10/21/17 05:00] Simvastatin [Zocor] 20 mg PO DAILY 07/03/15 [Last Taken 10/14/17] Insulin Pump, Patient Own 1 [facility] AD 05/15/16 [Last Taken 10/21/17] metFORMIN HCL [Glucophage 500 mg (*)] 1,000 mg PO BIDMEAL 05/15/16 [Last Taken 10/20/17 06:00] ARIPiprazole [Abilify 5 mg (*)] 5 mg PO DAILY 03/19/17 [Last Taken 10/20/17] FLUoxetine [Prozac 10 MG (*)] 10 mg PO HS MDD 30MG 03/19/17 [Last Taken 05:00] FLUoxetine [Prozac 20 MG (*)] 20 mg PO HS MDD 30MG 03/19/17 [Last Taken 05:00] Cholecalciferol Vit D3 [Vitamin D3 2000 units tab (OTC)] 4,000 units PO DAILY [Last Taken 10/14/17] Losartan Potassium [Cozaar 50 mg (*)] 100 mg PO DAILY 06/07/17 [Last Taken 10/20] Pantoprazole Sodium [Protonix 40mg (*)] 40 mg PO DAILY 06/07/17 [Last Taken 05:00] buPROPion XL [Wellbutrin Xl] 300 mg PO DAILY 06/24/17 [Last Taken 10/21/17 05:00 ] HCTZ (*) 10/18/17 [Last Taken 10/15/17] - NPO status NPO Status: no food or drink >8 hours NPO Since - Liquids (Date): 10/21/17 NPO Since - Liquids (Time): 05:00 NPO Since - Solids (Date): 10/20/17 NPO Since - Solids (Time): 19:30 - Smoking Hx Smoking Status: Never smoked - Family Anes Hx Family Hx Anesthesia Complications: NONE ANE Labs/Vital Signs - Vital Signs Blood Pressure: 136/69 Heart Rate: 89 Respiratory Rate: 16 O2 Sat (%): 93 Height: 172.72 cm Weight: 113.398 kg ANE Physical Exam - Airway Neck exam: FROM Mallampati Score: Class 3 Mouth exam: normal dental/mouth exam - Pulmonary Pulmonary: no respiratory distress - Cardiovascular Cardiovascular: regular rate and rhythym - ASA Status ASA Status: III ANE Anesthesia Plan Anesthesia Plan: general endotracheal anesthesia (RBA discussed)
[2017-10-21] MEDS ORDERED: LIDOCAINE 2% JELLY 20 ML (UROJECT) ONE (08:14)
[2017-10-21] MEDS ORDERED: IOPAMIDOL (ISOVUE-M 300) 15 ML VIAL ONE (08:14)
[2017-10-21] MEDS ORDERED: LIDOCAINE 2% 5 ML SDV ONE (08:19)
[2017-10-21] MEDS ORDERED: fentaNYL 100 MCG/2 ML INJ ONE ×2 (08:19→08:52)
[2017-10-21] MEDS ORDERED: PROPOFOL 200 MG/20 ML VIAL ONE (08:19)
[2017-10-21] MEDS ORDERED: SUCCINYLCHOLINE CHLORIDE 200 MG/10 ML SYR IVP ONE (08:19)
[2017-10-21] MEDS ORDERED: ONDANSETRON 4 MG/2 ML VIAL ONE (08:45)
[2017-10-21] MEDS ORDERED: METOCLOPRAMIDE 10 MG/2 ML VIAL ONE (08:48)
[2017-10-21] MEDS ORDERED: PHENYLEPHRINE HCL 100 MCG/ML SYR ONE (08:57)
--- NOTE | 2017-10-21 09:37 | PDHPUP ---
History & Physical Update H&P update statement: This history and physical update is based on an assessment of the patient which was completed after admission or registration (within 24 hours), but prior to the surgery/procedure. H&P update: no change in patient's condition since H&P completed
--- NOTE | 2017-10-21 09:41 | POSTANESTH ---
Post Anesthetic Evaluation Cardiovascular Status: Similar to Pre-Op Cond Respiratory Status: Similar to Pre-op Cond. Level of Consciousness/Mental Status: Can Participate in Eval Pain Control: Adequate, Prn Tx Ordered Nausea/Vomiting Control: Adequate, Prn Tx Ordered Complications Possibly Related to Anesthesia: None Noted (RMG pending.)
--- NOTE | 2017-10-21 09:44 | POSTOPPROG ---
Post Op Note Date of Operation: 10/21/17 Surgeon: Phillip Wood (# [id number]) Anesthesia: GET(General Endotracheal) Pre-op Diagnosis: Large left proximal ureteral calculus Post-op Diagnosis: Large-volume left nephrolithiasis Procedure: Cysto, left RGP, left ureteroscopy w/ calculus manipulation, stent placemen Findings: See op note Inf/Abcess present in the surg proc area at time of surgery?: No EBL: Minimal Complications: None Drains: Other (4.7 Fr. x 24 cm left ureteral stent) Specimen(s): None
[2017-10-21] MEDS ORDERED: HYDROCODONE/APAP 5/325 TAB PO PRN (09:48)
[2017-10-21] MEDS ORDERED: NALOXONE HCL 0.4 MG/ML INJ IVP PRN (09:48)
[2017-10-21] MEDS ORDERED: fentaNYL 100 MCG/2 ML INJ IVP PRN (09:48)
[2017-10-21] MEDS ORDERED: OXYCODONE/APAP 5/325 TAB PO PRN (09:48)
[2017-10-21] MEDS ORDERED: LR 500 ML IV PRN (09:48)
--- NOTE | 2017-10-21 10:13 | GOP ---
[f rep st] OPERATIVE REPORT DATE OF OPERATION: 10/21/2017 SURGEON: Phillip oWod MD ANESTHESIA: General endotracheal. PREOPERATIVE DIAGNOSIS: 1. Large left proximal ureteral calculus. 2. Left nephrolithiasis. POSTOPERATIVE DIAGNOSIS: Large volume left nephrolithiasis. PROCEDURE PERFORMED: 1. Cystourethroscopy, left retrograde pyelography. 2. Left ureteroscopy with proximal ureteral calculus manipulation. 3. Left ureteral stent placement (4.7-Iraqi by 24 cm). FINDINGS: Impacted large left ureteral calculus at the ureteropelvic junction. This calculus was manipulated into the renal collecting system with subsequent ureteroscopy. SPECIMENS: None. ESTIMATED BLOOD LOSS: Minimal. INDICATIONS: This gentleman was recently diagnosed with a large symptomatic left proximal ureteral calculus. The patient also has significant volume left nephrolithiasis. It was recommended that the patient undergo intraoperative management for the left ureteral calculus at this time. The indications for the procedures as well as potential risks and complications were discussed with the patient preoperatively. He appeared to understand, his questions were answered, and he wished to proceed. Written informed surgical consent was thereafter obtained. DESCRIPTION OF PROCEDURE: The patient was brought to the operating room and administered general endotracheal anesthesia. He was carefully placed in the dorsal lithotomy position on the cystoscopic table. The genital area was sterilely prepped with Betadine scrub and paint, then draped in the usual sterile fashion. Cystoscopy was performed with 30 and 70 degree lenses through a 22-Iraqi sheath. Anterior urethra revealed no abnormalities. Posterior urethra revealed mild BPH. The bladder was moderately trabeculated, but without areas of abnormal erythema, tumors, nor foreign bodies. Ureteral orifices were normal in regard to shape and position along the trigone. A 5-Iraqi open-ended ureteral catheter was used to perform retrograde pyelography on the left side. This revealed a normal ureter until the proximal aspect was reached at which point there was no passage of contrast further proximally. My impression was that the large calculus was obstructing flow contrast further proximally. I then passed a 0.035-inch hydrophilic angle- tipped guidewire up the left ureter, through the ureteral catheter, and attempted to advance the guidewire proximal to the perceived location of the calculus and into the renal collecting system. This required a fair amount of effort due to the obstructing large proximal calculus. I was ultimately able to advance the guidewire into the renal collecting system as noted fluoroscopically. The ureteral catheter was then removed and the entire length of the ureter distal to the perceived location of the calculus was dilated with 2 separate inflations and deflations of a 10 cm balloon by maintaining a pressure of 16 atmospheres for about 4 minutes on each occasion. The balloon dilator and cystoscope were then removed while keeping the guidewire in place. Semi-rigid ureteroscopy was performed alongside the guidewire. The ureteroscope was advanced all the way to the ureteropelvic junction. There was a fair amount of edema of the ureteral mucosa in the proximal aspect, just distal to the ureteropelvic junction, which was likely where the calculus was impacted. However, by this point, the calculus had migrated into the renal collecting system. Concerned that the patient had another large calculus in the lower pole of the left kidney, I decided not to perform further endoscopic management, with the thought that the patient would best be served at this point with percutaneous nephrostolithotomy. Therefore, the ureteroscope was removed and the cystoscope was back-loaded over the guidewire. Before doing so , however, I did inject contrast through the ureteroscope and was able to opacify the renal collecting system. There was moderate dilation of all calices. Otherwise, the collecting system was unremarkable. Once the ureteroscope was removed, the cystoscope was back-loaded over the guidewire and a 4.7-Iraqi by 24 cm hydrophilic ureteral stent advanced over the guidewire until it was properly positioned as seen fluoroscopically in the kidney and cystoscopically in the bladder. The bladder was then drained of all return which was relatively clear. The instruments were removed and 20 cc of 2% lidocaine injected transurethrally for postoperative analgesic purposes. The patient was then awakened, extubated, transferred to his bed, then taken to the recovery room. He tolerated the procedure well overall. COMPLICATIONS: None. DISPOSITION: He was transferred to the recovery room in stable condition and will be discharged with instructions to return to the office in approximately 2 weeks for further discussion about percutaneous nephrostolithotomy. /[id number]/MODL MTDD
[2017-10-21 10:23] VITALS: PULSE 86; RESP 17; TEMP 98.1
[2017-10-21] MEDS ORDERED: PHENAZOPYRIDINE HCL 200 MG TAB PO ONE (10:30)
[2017-10-21 10:57] VITALS: BP 123/60; O2SAT 92
== END 2017-10-21 11:05 | disposition home or self-care (01) ==
LOC: FSGY 06:41
PROVIDERS: ATTEND Specialist
PROC: 0T778DZ Dilation of Left Ureter with Intraluminal Device, Via Natural or Artificial Opening Endoscopic (ICD-10-PCS; principal; 2017-10-21 08:15)
DX: N20.0 Calculus of kidney (principal); N52.9 Male erectile dysfunction, unspecified; I10 Essential (primary) hypertension; G47.33 Obstructive sleep apnea (adult) (pediatric); I69.998 Other sequelae following unspecified cerebrovascular disease; R56.9 Unspecified convulsions; I25.2 Old myocardial infarction; Z95.5 Presence of coronary angioplasty implant and graft; E10.9 Type 1 diabetes mellitus without complications; K22.70 Barrett's esophagus without dysplasia; Z96.41 Presence of insulin pump (external) (internal); Z87.442 Personal history of urinary calculi
CPT/HCPCS: 52330; 52332; 76001; C1726; C1758; C1769; C2625; J0330; J1956; J2370; J2405; J2704; J2765; J3010; Q9967

== ENCOUNTER → 2017-12-08 | Day surgery (SDC) | payer OTHER ==
[~2017-12-08] MED LIST changes: -ACETAMINOPHEN 325 MG TAB ONE; +ACETAMINOPHEN 325 MG TAB PO PRN; +DEXMEDETOMIDINE HCL 400 MCG in D5W 100 ML IV ONE; +FLUMAZENIL 0.5 MG/5 ML MDV IVP PRN; +LIDOCAINE 1% 300 MG/30 ML SDV ONE; +MEPERIDINE 25 MG/ML SYR IVP PRN; -MIDAZOLAM 2 MG/2 ML VIAL IVP ONE; +MIDAZOLAM 2 MG/2 ML VIAL IVP PRN; +MIDAZOLAM 2 MG/2 ML VIAL ONE; +NALOXONE HCL 0.4 MG/ML INJ ONE; +NS 1,000 ML IV SCH; -PROMETHAZINE HCL 25 MG/ML INJ IVP PRN; +fentaNYL 100 MCG/2 ML INJ ONE
[2017-12-08 08:13] LABS: PLATELET COUNT 223 10^3/uL (150-400)
[2017-12-08 08:22] LABS: INR 0.92 (0.83-1.16); PROTIME(PATIENT) 12.6 SEC (12.0-15.0)
[2017-12-08 08:33] VITALS: PULSE 92
--- NOTE | 2017-12-08 09:06 | PDGENHP ---
History & Physical Chief Complaint: LT RENAL CALCULUS History of Present Illness: S/P RT STONE REMOVAL 06/22. NOW HERE FOR LT STONE REMOVAL. Pertinent Past, Social, Family History: S/P HEART STENTS, SLEEP APNEA. RT KIDNEY STONE REMOVAL; CARPAL TUNNEL BILATERALLY. Relevant Physical Exam: OBESE. Cardiorespiratory Assessment: RRR, CTA BILERALLY
--- NOTE | 2017-12-08 09:08 | PDPROPOC ---
Sedation Plan of Care Sedation Plan of Care: vital signs stable, mental status noted, patient educated of risks, benefits, alternatives, patient can tolerate sedation ASA Classification: ASA 3 Planned drugs: fentanyl, midazolam, other Mallampati Score: Class 4 Mallampati Reference Image: Patient passed 3-3-2 rule?: Yes
[2017-12-08 12:52] VITALS: BP 104/81; RESP 18; O2SAT 92
[2017-12-08 13:45] VITALS: TEMP 98.2
== END | disposition home or self-care (01) ==
LOC: FIMAGING 07:23
PROVIDERS: ATTEND Specialist
PROC: 0T9130Z Drainage of Left Kidney with Drainage Device, Percutaneous Approach (ICD-10-PCS; principal; 2017-12-08 04:04)
PROC: BT121ZZ Fluoroscopy of Left Kidney using Low Osmolar Contrast (ICD-10-PCS; principal; 2017-12-08 04:04)
DX: N20.0 Calculus of kidney (principal); Z96.0 Presence of urogenital implants
CPT/HCPCS: 50432; 99152; C1729; C1769; 82947-QW; J0696; J1644; J2250; J2310; J3010; Q9967

== ENCOUNTER → 2017-12-14 | Day surgery (SDC) | payer OTHER ==
[~2017-12-14] MED LIST changes: -ACETAMINOPHEN 325 MG TAB PO PRN; -DEXMEDETOMIDINE HCL 400 MCG in D5W 100 ML IV ONE; -FLUMAZENIL 0.5 MG/5 ML MDV IVP ONE; -FLUMAZENIL 0.5 MG/5 ML MDV IVP PRN; -LIDOCAINE 1% 300 MG/30 ML SDV ONE; -MEPERIDINE 25 MG/ML SYR IVP PRN; -MIDAZOLAM 2 MG/2 ML VIAL IVP PRN; -MIDAZOLAM 2 MG/2 ML VIAL ONE; -NALOXONE HCL 0.4 MG/ML INJ IVP PRN; -NALOXONE HCL 0.4 MG/ML INJ ONE; -NS 1,000 ML IV SCH; -ONDANSETRON 4 MG/2 ML VIAL IVP PRN; -fentaNYL 100 MCG/2 ML INJ IVP PRN; -fentaNYL 100 MCG/2 ML INJ ONE
== END | disposition home or self-care (01) ==
LOC: FIMAGING 12:33
PROVIDERS: ATTEND Specialist
PROC: BT121ZZ Fluoroscopy of Left Kidney using Low Osmolar Contrast (ICD-10-PCS; principal; 2017-12-14)
PROC: 0TP5X0Z Removal of Drainage Device from Kidney, External Approach (ICD-10-PCS; principal; 2017-12-14)
DX: Z43.6 Encounter for attention to other artificial openings of urinary tract (principal); Z87.442 Personal history of urinary calculi
CPT/HCPCS: Q9967

== ENCOUNTER → 2018-01-11 | Outpatient (CLI) | payer OTHER | LOC: FIMAGING 10:01 | PROVIDERS: ATTEND Specialist | DX: K76.0 Fatty (change of) liver, not elsewhere classified (principal); K43.9 Ventral hernia without obstruction or gangrene; K42.9 Umbilical hernia without obstruction or gangrene; I25.10 Atherosclerotic heart disease of native coronary artery without angina pectoris ==

== ENCOUNTER 2018-03-17 06:42 | Observation (INO) | payer OTHER ==
[2018-03-17 07:04] LABS: PLATELET COUNT 232 10^3/uL (150-400)
--- NOTE | 2018-03-17 07:06 | CPEKG ---
Heart Rate: 88 RR Interval: 682 P-R Interval: 180 QRSD Interval: 82 QT Interval: 372 QTC Interval: 450 P [place]: 63 QRS [place]: 32 T Wave [place]: 4 EKG Severity - NORMAL ECG - EKG Impression: SINUS RHYTHM Electronically Signed By: Jeet Quesada 17-Mar-2018 08:13:26
--- NOTE | 2018-03-17 07:07 | EDPHY ---
H & P Time Seen by Provider: 03/17/18 06:58 HPI/ROS: Chief complaint. Chest pain HPI. 62-year-old male with previous AL and CVA presents with 3 week history of continuous left anterior chest discomfort. He describes as sharp and radiating through to his back. He has associated shortness of breath and nausea and sweating. No fever cough. His symptoms are worse with exertion and relieved by rest. He states these symptoms are similar to previous AL. His symptoms are worse today so he came to the emergency department. He takes aspirin daily and took aspirin last night. He has no unusual leg pain or swelling though pain in his legs with exertion. No abdominal pain other than nausea. ROS Constitutional. no fever/chills, no weakness Eyes. no problems with vision ENT. no sore throat, no nasal drainage Cardiovascular. Left anterior chest pain Respiratory. Exertional dyspnea no cough Abdominal. No abdominal pain but nausea . no problems urinating MS. Leg pain with ambulation Skin. Diaphoresis Lymph. no swollen glands Neuro. no headache, no dizziness, no difficulty walking or with speech Past Medical/Surgical History: Past medical history significant for CVA, AL x3 with stents. Hypertension, diabetes on insulin, kidney stones, myasthenia gravis, PFO, bipolar illness Social History: , nonsmoker, no alcohol Smoking Status: Never smoked Physical Exam: General Appearance: Alert well-developed male moderate distress vital signs are stable Eyes: Pupils equal and round no pallor or injection. ENT, Mouth: Mucous membranes are moist. Respiratory: There are no retractions, lungs are clear to auscultation. Cardiovascular: Regular rate and rhythm. Gastrointestinal: Abdomen is soft and nontender, no masses, bowel sounds normal. Neurological: Awake and alert, sensory and motor exams grossly normal. Skin: Diaphoretic Musculoskeletal: Neck is supple nontender. Extremities symmetrical, full range of motion. Psychiatric: Patient is oriented X 3, there is no agitation. Constitutional: Initial Vital Signs Temperature (C) 37.0 C 03/17/18 06:53 Heart Rate 87 03/17/18 06:53 Respiratory Rate 20 03/17/18 06:53 Blood Pressure 149/81 H 03/17/18 06:53 O2 Sat (%) 98 03/17/18 06:53 O2 Delivery Mode Room Air Allergies/Adverse Reactions: caffeine Allergy (Verified 12/02/17 16:31) Vomiting linaclotide [From Linzess] Allergy (Verified 12/02/17 16:31) Abdominal Cramping Sulfa (Sulfonamide Antibiotics) Allergy (Verified 12/02/17 16:31) Anaphylaxis Home Medications: Medication Instructions Recorded Metoprolol Succinate Xr [Toprol Xl 25 mg PO HS 07/03/15 25 mg (*)] Insulin Pump, Patient Own 1 ea MISC AD 05/15/16 metFORMIN HCL [Glucophage 500 mg 1,000 mg PO BIDMEAL 05/15/16 (*)] ARIPiprazole [Abilify 5 mg (*)] 5 mg PO HS 03/19/17 FLUoxetine [Prozac 10 MG (*)] 10 mg PO DAILY 03/19/17 FLUoxetine [Prozac 20 MG (*)] 20 mg PO DAILY 03/19/17 Losartan Potassium [Cozaar 50 mg 100 mg PO HS 06/07/17 (*)] Pantoprazole Sodium [Protonix 40mg 40 mg PO DAILY 06/07/17 (*)] buPROPion XL [Wellbutrin 150mg XL] 300 mg PO DAILY 06/24/17 Amphet Asp and D/Amphet [Adderall 10 mg PO BID@06,1830 11/19/17 10 MG (*)] Clopidogrel Bisulfate [Plavix (*)] 75 mg PO HS 03/17/18 Hydrochlorothiazide [HCTZ (*)] 25 mg PO DAILY 03/17/18 Simvastatin [Zocor] 20 mg PO HS 03/17/18 Medical Decision Making - Diagnostics EKG Interpretation: EKG interpreted by me shows normal sinus rhythm normal interval and axis. QRS is normal there is no significant ST elevation or depression. No arrhythmia. The rate is 88 Monitor at times appears to show an atrial flutter type pattern Imaging Results: Imaging Impressions Chest X-Ray 03/17/18 06:53 Impression: 1. No acute pulmonary disease. 2. Consider chest two views when the patient's medical condition permits. Chest/Thorax CTA 03/17/18 07:45 Impression: 1. There is no CT evidence of pulmonary artery thromboemboli. 2. Mild cardiomegaly, with left anterior descending coronary artery stenting. There is no evidence of congestive heart failure. 3. [id number] central sliding hiatal hernia. 4. Stable borderline-splenomegaly. 5. Stable 15 mm right adrenal gland adenoma. Findings were discussed with NNAMDI NANCE MD at 9:47, on 03/17/2018. One-view chest x-ray interpreted by me is normal Chest CT shows no evidence of pulmonary embolus or aortic dissection or aneurysm Procedures: IV normal saline, monitor Patient has poor reaction to nitrates Morphine and Zofran IV ED Course/Re-evaluation: Point of care testing troponin is negative Re-evaluation at 7:50 a.m.. Patient is more comfortable after the morphine. The patient, his , and I discussed imaging lab EKG results. We discussed treatment plan including recommendation for CT of his chest looking for pulmonary embolus as well as large vessel disease. Patient expresses understanding and agreement I consulted and discussed case with Dr. Ramírez, hospitalist, who agrees to the admission Differential Diagnosis: Patient has a cardiac and neurologic history with MIs and CVAs in the past. Patient has had 3 weeks of chest discomfort that is worse with exertion and has shortness of breath with exertion as well as nausea and diaphoresis with exertion. Patient's EKG is nonacute and his troponin is normal. I have also considered pulmonary embolus as well as pneumonia and great vessel pathology including aneurysm and dissection of the aorta. Plan is admission - Data Points Laboratory Results: Laboratory Results 03/17/18 06:57 03/17/18 06:57 03/17/18 03/17/18 03/17/18 07:54 07:01 06:57 WBC RBC Hgb Hct MCV MCH MCHC RDW Plt Count MPV Neut % (Auto) Lymph % (Auto) [place] % (Auto) Eos % (Auto) Baso % (Auto) Nucleat RBC Rel Count Absolute Neuts (auto) Absolute Lymphs (auto) Absolute Monos (auto) Absolute Eos (auto) Absolute Basos (auto) Absolute Nucleated RBC Immature Gran % Immature Gran # D-Dimer < 0.27 ug/mLFEU ug/mLFEU (0.00-0.50) Sodium 137 mEq/L mEq/L (135-145) Potassium 3.3 mEq/L mEq/L (3.3-5.0) Chloride 102 mEq/L mEq/L (97-110) Carbon Dioxide 24 mEq/l mEq/l (22-31) Anion Gap 11 mEq/L mEq/L (8-16) BUN 18 mg/dL mg/dL (7-23) Creatinine 1.0 mg/dL mg/dL (0.7-1.3) Estimated GFR > 60 Glucose 139 mg/dL H mg/dL (70-100) Calcium 10.1 mg/dL mg/dL (8.5-10.4) POC Troponin I 0.01 ng/mL ng/mL (0.00-0.08) 03/17/18 03/17/18 06:57 06:53 WBC 4.88 10^3/uL 10^3/uL (3.80-9.50) RBC 4.60 10^6/uL 10^6/uL (4.40-6.38) Hgb 12.6 g/dL L g/dL (13.7-17.5) Hct 38.1 % L % (40.0-51.0) MCV 82.8 fL fL (81.5-99.8) MCH 27.4 pg L pg (27.9-34.1) MCHC 33.1 g/dL g/dL (32.4-36.7) RDW 15.4 % H % (11.5-15.2) Plt Count 232 10^3/uL 10^3/uL (150-400) MPV 9.7 fL fL (8.7-11.7) Neut % (Auto) 58.7 % % (39.3-74.2) Lymph % (Auto) 27.3 % % (15.0-45.0) [place] % (Auto) 10.5 % % (4.5-13.0) Eos % (Auto) 2.5 % % (0.6-7.6) Baso % (Auto) 0.4 % % (0.3-1.7) Nucleat RBC Rel Count 0.0 % % (0.0-0.2) Absolute Neuts (auto) 2.87 10^3/uL 10^3/uL (1.70-6.50) Absolute Lymphs (auto) 1.33 10^3/uL 10^3/uL (1.00-3.00) Absolute Monos (auto) 0.51 10^3/uL 10^3/uL (0.30-0.80) Absolute Eos (auto) 0.12 10^3/uL 10^3/uL (0.03-0.40) Absolute Basos (auto) 0.02 10^3/uL 10^3/uL (0.02-0.10) Absolute Nucleated RBC 0.00 10^3/uL 10^3/uL (0-0.01) Immature Gran % 0.6 % % (0.0-1.1) Immature Gran # 0.03 10^3/uL 10^3/uL (0.00-0.10) D-Dimer REJ Sodium Potassium Chloride Carbon Dioxide Anion Gap BUN Creatinine Estimated GFR Glucose Calcium POC Troponin I Medications Given: Discontinued Medications Aspirin Buffered (Aspirin Ec) 325 mg PO ONCALL ONE Stop: 03/17/18 11:19 Last Admin: 03/17/18 12:41 Dose: 325 mg Diazepam (Valium) 5 mg PO ONCALL ONE Stop: 03/17/18 11:19 Last Admin: 03/17/18 12:41 Dose: 5 mg Famotidine (Pepcid) 20 mg PO ONCALL ONE Stop: 03/17/18 11:19 Last Admin: 03/17/18 12:41 Dose: 20 mg Hydromorphone HCl (Dilaudid) 0.5 mg IVP EDNOW ONE Stop: 03/17/18 08:53 Last Admin: 03/17/18 08:56 Dose: 0.5 mg Sodium Chloride (Ns) 1,000 mls @ 0 mls/hr IV ONCE ONE; Wide Open PRN Reason: Protocol Stop: 03/17/18 07:46 Last Admin: 03/17/18 07:58 Dose: 1,000 mls Sodium Chloride (Ns) 1,000 mls @ 0 mls/hr IV ONCE ONE; Wide Open PRN Reason: Protocol Stop: 03/17/18 08:19 Last Admin: 03/17/18 08:19 Dose: Not Given Morphine Sulfate (Morphine) 6 mg IVP EDNOW ONE Stop: 03/17/18 07:24 Last Admin: 03/17/18 07:32 Dose: 6 mg Ondansetron HCl (Zofran) 4 mg IVP EDNOW ONE Stop: 03/17/18 07:24 Last Admin: 03/17/18 07:33 Dose: 4 mg Point of Care Test Results: Chemistry 03/17/18 07:01 POC Troponin I 0.01 ng/mL ng/mL (0.00-0.08) Departure - Departure Disposition: [facility] Inpatient Acute Clinical Impression: Chest pain Qualifiers: Chest pain type: unspecified Qualified Code(s): R07.9 - Chest pain, unspecified Condition: Good
[2018-03-17] MEDS ORDERED: ONDANSETRON 4 MG/2 ML VIAL IVP ONE (07:23)
[2018-03-17] MEDS ORDERED: NS 1,000 ML IV ONE ×2 (07:45→08:18)
[2018-03-17] MEDS ORDERED: IOPAMIDOL (ISOVUE 370) 100 ML BTL IV ONE (08:00)
[2018-03-17] MEDS ORDERED: HYDROmorphONE/DILAUDID 2 MG/ML INJ IVP ONE (08:52)
[2018-03-17] MEDS ORDERED: PROMETHAZINE HCL 25 MG/ML INJ IVP PRN (11:16)
[2018-03-17] MEDS ORDERED: ONDANSETRON 4 MG/2 ML VIAL IVP PRN (11:16)
[2018-03-17] MEDS ORDERED: ONDANSETRON DISINTEGRATING 4 MG TAB PO PRN (11:16)
[2018-03-17] MEDS ORDERED: oxyCODONE IR 5 MG TAB PO PRN (11:16)
[2018-03-17] MEDS ORDERED: ACETAMINOPHEN 325 MG TAB PO PRN (11:16)
[2018-03-17] MEDS ORDERED: LORazepam 2 MG/ML INJ IVP PRN (11:16)
[2018-03-17] MEDS ORDERED: ASPIRIN EC 325 MG TAB PO ONE (11:18)
[2018-03-17] MEDS ORDERED: DIAZEPAM 5 MG TAB PO ONE (11:18)
[2018-03-17] MEDS ORDERED: NITROGLYCERIN 0.4 MG BTL SL PRN (11:18)
[2018-03-17] MEDS ORDERED: FAMOTIDINE 20 MG TAB PO ONE (11:18)
[2018-03-17] MEDS ORDERED: NS 1,000 ML IV SCH ×2 (11:30)
[2018-03-17] MEDS ORDERED: fentaNYL 100 MCG/2 ML INJ ONE (12:40)
[2018-03-17] MEDS ORDERED: LIDOCAINE 1% 300 MG/30 ML SDV ONE (12:40)
[2018-03-17] MEDS ORDERED: MIDAZOLAM 2 MG/2 ML VIAL ONE (12:40)
[2018-03-17] MEDS ORDERED: HEPARIN 10,000 UNIT/10 ML MDV (1,000 UNIT/ML) ONE (12:41)
[2018-03-17] MEDS ORDERED: IOPAMIDOL (ISOVUE-370) 150 ML BTL IV ONE (12:41)
[2018-03-17] MEDS ORDERED: VERAPAMIL 5 MG/2 ML VIAL ONE (12:41)
--- NOTE | 2018-03-17 12:44 | PDCARCONS ---
Cardiology Consult Reason for Consult: Chest pain Chief Complaint: Chest pain History of Present Illness: Torres is a 62-year-old male with a history of previous OK s/p 3 stents, hypertension, type I diabetes, CVA, and PFO. He presented to the emergency department today with a 3 week history of continuous left anterior chest discomfort. His chest pain is sharp and radiates to his back. He has associated shortness of breath, nausea, and diaphoresis. Torres notes that his symptoms are worse with exertion and improve with rest. His symptoms were exacerbated today so he went to the ED. Torres takes Aspirin daily, his last dose was last night. Torres' symptoms are similar to when he had stents placed. History Information - Allergies/Home Medication List Allergies/Adverse Reactions: caffeine Allergy (Verified 12/02/17 16:31) Vomiting linaclotide [From Linzess] Allergy (Verified 12/02/17 16:31) Abdominal Cramping Sulfa (Sulfonamide Antibiotics) Allergy (Verified 12/02/17 16:31) Anaphylaxis Home Medications: Metoprolol Succinate Xr [Toprol Xl 25 mg (*)] 25 mg PO HS 07/03/15 [Last Taken 03/16/18] Insulin Pump, Patient Own 1 ea MIS AD 05/15/16 [Last Taken 12/09/17 06:25 5 units] metFORMIN HCL [Glucophage 500 mg (*)] 1,000 mg PO BIDMEAL 05/15/16 [Last Taken 03/17/18] ARIPiprazole [Abilify 5 mg (*)] 5 mg PO HS 03/19/17 [Last Taken 03/16/18] FLUoxetine [Prozac 10 MG (*)] 10 mg PO DAILY 03/19/17 [Last Taken 03/17/18] FLUoxetine [Prozac 20 MG (*)] 20 mg PO DAILY 03/19/17 [Last Taken 03/17/18] Losartan Potassium [Cozaar 50 mg (*)] 100 mg PO HS 06/07/17 [Last Taken 03/16/18 ] Pantoprazole Sodium [Protonix 40mg (*)] 40 mg PO DAILY 06/07/17 [Last Taken 08/23] buPROPion XL [Wellbutrin 150mg XL] 300 mg PO DAILY 06/24/17 [Last Taken 03/17/18 ] Amphet Asp and D/Amphet [Adderall 10 MG (*)] 10 mg PO BID@06,1830 11/19/17 [ Last Taken 03/17/18] Clopidogrel Bisulfate [Plavix (*)] 75 mg PO HS 03/17/18 [Last Taken 03/16/18] Hydrochlorothiazide [HCTZ (*)] 25 mg PO DAILY 03/17/18 [Last Taken 03/16/18] Simvastatin [Zocor] 20 mg PO HS 03/17/18 [Last Taken 03/16/18] I have personally reviewed and updated: family history, medical history, social history, surgical history Past Medical History: - Past Medical History coronary artery disease, CVA, diabetes type 1, hypertension, hyperlipidemia - Surgical History Reports: coronary stent - Social History Smoking Status: Never smoked Additional social history: Cardiac History - Cardiac History Past Cardiac History: CAD, PCI Cardiac Risk Factors: hypertension (>140/90), lipidemia, diabetes mellitus, male Timing/Duration: Weeks Severity: moderate Location: substernal Activities at Onset: activity Modifying Factors: improves with: exercise (Worsens), rest (Improves) Associated Symptoms: diaphoresis, nausea/vomiting, shortness of breath SIMBA Risk Evaluation age greater or equal to 65: no greater or equal to 3 CAD risk factors: yes known CAD(stenosis greater or eqaul to 50%): yes ASA use in past 7 days: yes severe angina(greater or equal to 2 episodes in 24hrs): yes EKG ST changes greater or equal to 0.5mm: no positive cardiac marker: no Total Score: 4 SIMBA Score: 19.9% risk Physical Exam Physical Exam: Temp Pulse Resp BP Pulse Ox 36.9 C 83 19 122/73 H 99 03/17/18 08:45 03/17/18 10:03 03/17/18 10:03 03/17/18 10:03 03/17/18 10:03 O2 (L/minute) 2 Constitutional: no apparent distress, appears nourished Eyes: PERRL, anicteric sclera, EOMI Ears, Nose, Mouth, Throat: moist mucous membranes Cardiovascular: regular rate and rhythym, no murmur, rub, or gallop Respiratory: no respiratory distress, no rales or rhonchi Gastrointestinal: normoactive bowel sounds Skin: warm, normal color Musculoskeletal: no muscle tenderness Neurologic: AAOx3 Psychiatric: interacting appropriately, not anxious Lab and Imaging 03/17/18 06:57 03/17/18 06:57 WBC 4.88 10^3/uL (3.80-9.50) 03/17/18 06:57 RBC 4.60 10^6/uL (4.40-6.38) 03/17/18 06:57 Hgb 12.6 g/dL (13.7-17.5) L 03/17/18 06:57 Hct 38.1 % (40.0-51.0) L 03/17/18 06:57 MCV 82.8 fL (81.5-99.8) 03/17/18 06:57 MCH 27.4 pg (27.9-34.1) L 03/17/18 06:57 MCHC 33.1 g/dL (32.4-36.7) 03/17/18 06:57 RDW 15.4 % (11.5-15.2) H 03/17/18 06:57 Plt Count 232 10^3/uL (150-400) 03/17/18 06:57 MPV 9.7 fL (8.7-11.7) 03/17/18 06:57 Neut % (Auto) 58.7 % (39.3-74.2) 03/17/18 06:57 Lymph % (Auto) 27.3 % (15.0-45.0) 03/17/18 06:57 [place] % (Auto) 10.5 % (4.5-13.0) 03/17/18 06:57 Eos % (Auto) 2.5 % (0.6-7.6) 03/17/18 06:57 Baso % (Auto) 0.4 % (0.3-1.7) 03/17/18 06:57 Nucleat RBC Rel Count 0.0 % (0.0-0.2) 03/17/18 06:57 Absolute Neuts (auto) 2.87 10^3/uL (1.70-6.50) 03/17/18 06:57 Absolute Lymphs (auto) 1.33 10^3/uL (1.00-3.00) 03/17/18 06:57 Absolute Monos (auto) 0.51 10^3/uL (0.30-0.80) 03/17/18 06:57 Absolute Eos (auto) 0.12 10^3/uL (0.03-0.40) 03/17/18 06:57 Absolute Basos (auto) 0.02 10^3/uL (0.02-0.10) 03/17/18 06:57 Absolute Nucleated RBC 0.00 10^3/uL (0-0.01) 03/17/18 06:57 Immature Gran % 0.6 % (0.0-1.1) 03/17/18 06:57 Immature Gran # 0.03 10^3/uL (0.00-0.10) 03/17/18 06:57 D-Dimer < 0.27 ug/mLFEU (0.00-0.50) 03/17/18 07:54 Sodium 137 mEq/L (135-145) 03/17/18 06:57 Potassium 3.3 mEq/L (3.3-5.0) 03/17/18 06:57 Chloride 102 mEq/L (97-110) 03/17/18 06:57 Carbon Dioxide 24 mEq/l (22-31) 03/17/18 06:57 Anion Gap 11 mEq/L (8-16) 03/17/18 06:57 BUN 18 mg/dL (7-23) 03/17/18 06:57 Creatinine 1.0 mg/dL (0.7-1.3) 07 06:57 Estimated GFR > 60 03/17/18 06:57 Glucose 139 mg/dL (70-100) H 03/17/18 06:57 POC Glucose 96 mg/dL (70-100) 03/17/18 12:08 Calcium 10.1 mg/dL (8.5-10.4) 03/17/18 06:57 POC Troponin I 0.01 ng/mL (0.00-0.08) 03/17/18 07:01 Visualized and Interpreted Chest x-ray results: Yes Chest X-ray Interpretation: normal Visualized and Interpreted EKG results: Yes EKG Interpretation: Positive for: normal sinsus rhythm EKG additional interpertation: No ST elevation or depression A/P Assessment: Torres presented to the Emergency Department with 3 weeks of ongoing chest pain that increased in severity today. He has a history of OK with 3 previous stents as well as CVA. His symptoms feel similar to when he had prior stents placed. His EKG performed in the ED shows sinus rhythm, no ST/T changes. Normal QRS. His Troponin is normal and CT chest is negative for PE. Given the patient's cardiac history and acute clinical symptoms of angina, I recommend cardiac catheterization for a formal assessment of coronary artery disease. I have explained the risks, expected benefits and potential complications of this course of action with the patient and he wishes to proceed as planned. Some potential benefits include angina relief, definitive assessment of coronary anatomy and LV function. Complications have been described as , permanent and disabling stroke, heart attack, abnormal heart rhythm, bleeding and damage to blood vessels resulting in tissue or limb loss. Plan: We will proceed with cardiac catheterization today.
--- NOTE | 2018-03-17 13:07 | CPEKG ---
Heart Rate: 76 RR Interval: 789 P-R Interval: 192 QRSD Interval: 80 QT Interval: 396 QTC Interval: 446 P [place]: 63 QRS [place]: 23 T Wave [place]: 0 EKG Severity - NORMAL ECG - EKG Impression: SINUS RHYTHM Electronically Signed By: Rigo Nicole 17-Mar-2018 16:37:15
[2018-03-17 13:10] LABS: INR 1.04 (0.83-1.16); PROTIME(PATIENT) 13.8 SEC (12.0-15.0)
--- NOTE | 2018-03-17 13:39 | PDPROPOC ---
Sedation Plan of Care Sedation Plan of Care: vital signs stable, mental status noted, patient educated of risks, benefits, alternatives, patient can tolerate sedation ASA Classification: ASA 3 Planned drugs: fentanyl, midazolam, other Mallampati Score: Class 4 Mallampati Reference Image: Patient passed 3-3-2 rule?: No (Sleep apnea, difficult airway)
[2018-03-17 13:50] LABS: PLATELET COUNT 223 10^3/uL (150-400)
--- NOTE | 2018-03-17 14:24 | PDDXCAT ---
Diagnostic Cath Note - . Date: 03/17/18 Steamfitter: Veronica Indication: CCC Class III and IV angina on medical treatment - Procedure Access: right groin Procedure: left heart catheterization, coronary angiography, left ventriculogram - Materials Left Heart Cath size: 6F Left Heart Cath materials: standard multipack (JL4, JR4, pigtail) - Findings-Left Heart Catheterization LM: The LM is 7mm in size. It bifurcates into an LAD and Circumflex system. LAD: LAD is 3.5 mm in size and previously stented. There is a 70% eccentric lesion distal to the previously placed stent, which was sumewhat difficult to image secondary to overlap from the dominant circumflex. SIMBA III flow present. There is a 60% ostial diagonal lesion. The diagonal comes off within the stented segment. There is SIMBA III flow to the distal vessel. LCX: The circumflex is 4mm in size and dominant. There are luminal irregularities consistent with atherosclerosis. No flow limiting obstruction is identified. RCA: The RCA is 3mm in size. It is non-dominant and free of flow limiting disease. EDP: 19mmHg LVEF: The EF is 65%. Wall motion: On the LV gram there is normal LV systolic function. The EF is 65% . There are no resting segmental wall motion abnormalities. The visualized portion of the thoracic aortic valve reveals three sinuses of valsalva most consistent with a trileaflet valve. There is no gradient on pullback across the aortic valve. There is no evidence of miky dissection or aneurysm formation. Complications: NONE. Estimated blood loss: <50ml Closure method: Angioseal Assessment: The patient has [place] vessel coronary disease. His LAD has been previously stented. There is a 70% obstruction of the mid LAD distal to the previous stent. This lesion was stented with a drug eluting stent. SIMBA III flow pre and post stent implantation. Plan: Dual antiplatelet therapy with Aspirin 325mg for the first month followed by Aspirin 81mg along with Plavix 75mg daily should be continued for at least 1 year following drug eluting stent implantation. No elective surgery for the first 3 months. Decisions to stop dual antiplatelet therapy before 1 year should involve our office Located within [facility]. Intervention: A 6 Romansh JL4 guiding catheter was used for guide catheter support. A 0.014 Intuition Wire was advanced across the lesion in the mid LAD under direct fluoroscopic and angiographic guidance. The lesion was primarily stented with a Synergy 3.0 x 28 mm drug eluting stent. Balloon was inflated for 25 seconds at 15 shima in the mid LAD X 2. There was 0% residual stenosis. SIMBA III flow pre and post stent implantation. Patient Problems: Problems Problem Status Onset Chest pain Acute CAD (coronary artery disease) Acute History of coronary artery disease Acute Obstructive uropathy Acute
[2018-03-17] MEDS ORDERED: BIVALIRUDIN 250 MG/5 ML VIAL IV ONE (14:29)
[2018-03-17] MEDS ORDERED: CLOPIDOGREL BISULFATE 75 MG TAB ONE (14:52)
[2018-03-17] MEDS ORDERED: ATROPINE SULFATE 1 MG/10 ML SYR IVP PRN (15:07)
[2018-03-17] MEDS ORDERED: CLOPIDOGREL BISULFATE 75 MG TAB PO ONE (15:07)
[2018-03-17] MEDS: NS 1,000 ML IV SCH ×2 (16:25→20:05)
--- NOTE | 2018-03-17 16:31 | CPEKG ---
Heart Rate: 74 RR Interval: 811 P-R Interval: 188 QRSD Interval: 76 QT Interval: 404 QTC Interval: 449 P [place]: 57 QRS [place]: 41 T Wave [place]: 15 EKG Severity - NORMAL ECG - EKG Impression: SINUS RHYTHM Electronically Signed By: Rigo Nicole 17-Mar-2018 21:09:03
[2018-03-17] MEDS ORDERED: NON-FORMULARY NEW DRUG (Insulin Pump, Patient Own 1 EA) MISC SCH (16:45)
[2018-03-17] MEDS ORDERED: D50W 25 GM/50 ML SYR IVP PRN (17:21)
[2018-03-17] MEDS ORDERED: INSULIN PUMP, PATIENT OWN 1 EA MISC SCH (17:30)
[2018-03-17] MEDS ORDERED: METOPROLOL SUCCINATE XR 25 MG TAB PO SCH (21:00)
[2018-03-17] MEDS ORDERED: CLOPIDOGREL BISULFATE 75 MG TAB PO SCH (21:00)
[2018-03-17] MEDS ORDERED: ARIPiprazole 5 MG TAB PO SCH (21:00)
[2018-03-17] MEDS ORDERED: ATORVASTATIN CALCIUM 10 MG TAB PO SCH (21:00)
[2018-03-17] MEDS ORDERED: LOSARTAN POTASSIUM 50 MG TAB PO SCH (21:00)
[2018-03-18] MEDS ORDERED: PANTOPRAZOLE SODIUM 40 MG TAB PO SCH (09:00)
[2018-03-18] MEDS ORDERED: FLUoxetine 10 MG CAP PO SCH (09:00)
[2018-03-18] MEDS ORDERED: HYDROCHLOROTHIAZIDE 25 MG TAB PO SCH (09:00)
[2018-03-18] MEDS ORDERED: CLOPIDOGREL BISULFATE 75 MG TAB PO SCH (09:00)
[2018-03-18] MEDS ORDERED: buPROPion XL 150 MG TAB PO SCH (09:00)
[2018-03-18] MEDS ORDERED: ASPIRIN EC 325 MG TAB PO SCH (09:00)
[2018-03-18] MEDS ORDERED: FLUoxetine 20 MG CAP PO SCH (09:00)
[2018-03-18 11:11] VITALS: BP 143/72
--- NOTE | 2018-03-18 12:54 | GDS ---
[f rep st] DISCHARGE SUMMARY ADMISSION DIAGNOSES: 1. Coronary artery disease status post PTCA and stent placement. 2. Hypertension. 3. Diabetes mellitus. 4. Dyslipidemia. DISCHARGE DIAGNOSES: 1. Coronary artery disease status post PTCA and stent placement of the left anterior descending. 2. Hypertension. 3. Diabetes. 4. Dyslipidemia. HISTORY OF PRESENT ILLNESS: For a detailed history of present illness, please see my cardiology cons ultation from yesterday, which should suffice as the patient's H and P. Briefly, Mr. Torres Escobar has experienced worsening chest discomfort, pressure and tightness for the past 3 weeks. The pain is severe and radiates from the front into the back of his chest, and is reminiscent of a prior pain wh en he had a myocardial infarction. He was ultimately admitted to the hospital. I was asked to see t he patient in consultation, but ultimately became the admitting physician. The patient underwent car diac catheterization, was found to have a 70% lesion of the LAD distal to the previously placed stent s. For details of that procedure, please see the recently dictated operative report. The patient di d receive a drug-eluting stent yesterday. The patient's chest pain prior to the procedure was 7/10 a nd as severe as 10/10 on his arrival to the emergency department. His EKG and troponin were negative for ischemia or evidence of myocardial injury. HOSPITAL COURSE: The patient was admitted overnight following the cardiac catheterization and stent implantation. On the morning of his discharge from the hospital, he is medically stable and ready fo r discharge to home. DISCHARGE MEDICATIONS: To include aspirin 325 mg to be continued for the next 1 month, followed by a spirin 81 mg to be used in combination with Plavix or clopidogrel 75 mg p.o. at bedtime. He should b e on dual antiplatelet therapy for at least 1 year post stent implantation, metoprolol succinate XR 2 5 mg p.o. at bedtime. Metformin 1000 p.o. twice daily will be held for another 48 hours and resumed on Wednesday morning, insulin pump, which will be continued. Fluoxetine, a total of 30 mg daily, Abilif y 5 mg p.o. at bedtime, Protonix 40 mg p.o. daily, losartan 50 mg tablets 100 mg p.o. daily. Bupropi on XL 150 mg 300 mg total each day, and Adderall 10 mg p.o. twice daily, simvastatin 20 mg p.o. at be dtime, hydrochlorothiazide 25 mg p.o. daily. ACTIVITY: His activity is to be limited by groin precautions. I would like for him to avoid doing a nything strenuous or doing anything to get red in the face, hot or sweaty over the next 7 to 10 days. He knows to report promptly to the emergency department should he experience chest discomfort, pres sure, tightness, or other clinical symptoms of concern. I explained to the patient that it would be unusual to have a 70% lesion in the coronary cause resting pain of the severity that he described. I t is somewhat interesting to me that his chest pain is completely resolved post stent implantation. Again, a somewhat unusual presentation for an acute coronary syndrome with negative troponin and EKG. Again, the patient is to return promptly to the emergency department should he experience chest ryan n, pressure, tightness, or other clinical symptoms of concern. I have asked that he follow with Dr. Suresh, as well as with Dr. Yordan Vuong. He is to call our office and obtain a visit in the next 7 t o 10 days, and it will be fine for him to see a mid-level provider to check on his groin and allow hi m to proceed with more aggressive exercise in the near future. /[id number]/MODL
== END 2018-03-18 12:52 | disposition home or self-care (01) ==
LOC: INTOOBSV 08:17 → F2W 10:15
PROVIDERS: ADMIT Internal Medicine; ATTEND Internal Medicine Cardiovascular Disease
DX: I25.119 Atherosclerotic heart disease of native coronary artery with unspecified angina pectoris (principal); E86.9 Volume depletion, unspecified; I10 Essential (primary) hypertension; E78.5 Hyperlipidemia, unspecified; E10.9 Type 1 diabetes mellitus without complications; I25.2 Old myocardial infarction; Q21.1 Atrial septal defect; F31.9 Bipolar disorder, unspecified; Z79.82 Long term (current) use of aspirin; Z79.4 Long term (current) use of insulin; Z87.442 Personal history of urinary calculi; Z86.73 Personal history of transient ischemic attack (TIA), and cerebral infarction without residual deficits; Z95.5 Presence of coronary angioplasty implant and graft; Z88.2 Allergy status to sulfonamides
CPT/HCPCS: 71045; 71275; 93005; 93458; C1760; C1769; C1874; C1887; C9600; G0378; J0583; J1170; J1644; J2250; J2270; J2405; J3010; Q9967; 84484-PO; 96374

== ENCOUNTER → 2018-08-02 | Outpatient (CLI) | payer OTHER | PROVIDERS: ATTEND Internal Medicine Gastroenterology | DX: R13.10 Dysphagia, unspecified (principal); K22.70 Barrett's esophagus without dysplasia; K44.9 Diaphragmatic hernia without obstruction or gangrene | CPT/HCPCS: 92611-GN ==